=== PATIENT | male | born 1935 | race Caucasian/White ===

== ENCOUNTER 2016-06-10 21:19 | Observation (INO) | payer MEDICARE ==
[2016-06-10] MEDS ORDERED: SODIUM CHLORIDE 0.9% 1,000 ML IV STA (22:08)
--- NOTE | 2016-06-10 22:17 | ED ---
General Adult HPI - General Chief complaint: GI Bleed Stated complaint: Rectal Bleeding Time Seen by Provider: 06/10/16 21:45 Source: patient Mode of arrival: EMS Limitations: no limitations - History of Present Illness Initial comments: Patient is an 80-year-old male with history of colon cancer status post colon resection and colostomy, A. fib on Coumadin, COPD presenting with concern for rectal bleeding. Patient states he noticed some blood in his underwear for which he told family and they were concerned he was having rectal bleeding. Patient had a colon resection and does not have a rectum. Patient has a colostomy for which he has not noticed any blood in the output. Patient states he was bleeding from a little dry skin on his butt. Family is also concerned that he is not acting right for the past month. Family states his energy and mental status will wax and wane every month or so. Patient and family deny any known fall. Patient denies headache, dizziness, chest pain, shortness breath, nausea, vomiting, diarrhea, abdominal pain. - Related Data Home Medications Medication Instructions Recorded Confirmed Diltiazem HCl 60 mg PO TID 05/09/16 06/10/16 Metoprolol Tartrate [Lopressor] 25 mg PO BID 05/09/16 06/10/16 Warfarin [Coumadin] 5 mg PO HS 05/09/16 06/10/16 HYDROcodone/APAP 5-325MG [[place] 1 tab PO BID PRN 05/15/16 06/10/16 5-325] Ipratropium/Albuterol Sulfate 2 puff INHALATION RT-QID 05/15/16 06/10/16 [Combivent Respimat Inhaler] Effer-K 20 Meq 1 tab PO DAILY 06/10/16 06/10/16 Furosemide [Lasix] 40 mg PO DAILY 06/10/16 06/10/16 Sertraline [Zoloft] 50 mg PO DAILY 06/10/16 06/10/16 Previous Rx's Medication Instructions Recorded ALPRAZolam [Xanax] 0.5 mg PO DAILY PRN #10 tablet 05/17/16 Allergies Allergy/AdvReac Type Severity Reaction Status Date / Time aspirin Allergy Dyspnea Verified 06/10/16 21:43 shellfish derived [Shellfish] Allergy Itching Verified 06/10/16 21:43 Review of Systems ROS Statement: Those systems with pertinent positive or pertinent negative responses have been documented in the HPI. Constitutional: No fever and no chills. HENT: No congestion, no rhinorrhea and no sore throat. Eyes: No discharge and no redness. Respiratory: No cough and no shortness of breath. Cardiovascular: No chest pain and no palpitations. Gastrointestinal: No nausea, no vomiting, no abdominal pain and no diarrhea. Genitourinary: No dysuria and no hematuria. Musculoskeletal: No back pain and no arthralgias. Skin: No pallor and no rash. + Abrasion Neurological: No dizziness and No headaches. ROS Other: All systems not noted in ROS Statement are negative. Past Medical History Past Medical History: COPD, Memory Impairment, Myocardial Infarction ([place]) Last Myocardial Infarction Date:: 1989 History of Any Multi-Drug Resistant Organisms: None Reported Past Surgical History: Adenoidectomy, Appendectomy, Bowel Resection, Hernia Repair, Tonsillectomy Additional Past Surgical History / Comment(s): colostomy Past Psychological History: Anxiety, Depression Smoking Status: Never smoker Past Alcohol Use History: None Reported Past Drug Use History: None Reported - Past Family History Mother History Unknown: Yes Family Medical History: COPD General Exam - General Exam Comments Initial Comments: Constitutional: Patient is a frail appearing 80-year-old male. No distress. Head: Normocephalic and atraumatic. Eyes: Conjunctivae and EOM are normal. Right eye exhibits no discharge. Left eye exhibits no discharge. No scleral icterus. Neck: Normal range of motion. Neck supple. Cardiovascular: Normal rate and regular rhythm. No murmur heard. Pulmonary/Chest: Effort normal and breath sounds normal. No respiratory distress. No wheezes. Abdominal: Left lower quadrant colostomy. Soft. No distension. There is no tenderness. There is no rebound and no guarding. : Mild 1 cm abrasion with no active bleeding to anal region. Musculoskeletal: Normal range of motion. No edema or tenderness. Neurological: Patient alert and oriented to person, place. Patient thinks it is 2012 but when told this 2016 he remembers. Skin: Skin is warm and dry. Not diaphoretic. Nursing notes and vitals reviewed. Limitations: no limitations Course Vital Signs 06/10/16 21:38 Temperature 97.9 F Pulse Rate 70 Respiratory 16 Rate Blood Pressure 109/58 O2 Sat by Pulse 97 Oximetry - Reevaluation(s) Reevaluation #1: 06/10/16 23:59 Patient was resting comfortably in bed. Course of stay improved. Denies pain. Discussed physical exam and diagnostic tests with patient. Questions answered and patient is agreeable to staying in the hospital. EKG Findings - EKG Comments: EKG Findings:: EKG done November 08, 2016 at 2253 showing ventricular rate of 66 bpm. Normal sinus rhythm no ST or T-wave changes. OK interval 158 ms, QRS duration 84 ms. QTC 431 ms. Medical Decision Making - Medical Decision Making Patient's an 80-year-old male presenting with concern for rectal bleeding on Coumadin. Patient had a small abrasion to his anal region which has been closed since colon cancer and colectomy. Bleeding was controlled. Family's other concern is about patient's mental status and confusion. They question if he is taken his pills as he should. Patient does live alone. Blood work concerning for hypokalemia potassium 2.7. Hemoglobin is stable at 8.2 with priors being 8.9. Potassium ordered for replacement orally and IV. Given patient's altered mental status and be on Coumadin head CT was obtained when was unremarkable. Chest x-ray unremarkable. UA unremarkable. Discussed H&P and pertinent diagnostic tests with admitting physician who agrees with plan and accepts admission of patient. - Lab Data Result diagrams: 06/10/16 22:43 06/10/16 22:43 Lab Results 06/10/16 06/10/16 06/10/16 Range/Units 22:43 22:43 22:43 WBC 8.2 (3.8-10.6) k/uL RBC 3.01 L (4.30-5.90) m/uL Hgb 8.2 L (13.0-17.5) gm/dL Hct 25.5 L (39.0-53.0) % MCV 84.6 D (80.0-100.0) fL MCH 27.3 (25.0-35.0) pg MCHC 32.2 (31.0-37.0) g/dL RDW 13.9 (11.5-15.5) % Plt Count 196 (150-450) k/uL Neutrophils % 85 % Lymphocytes % 8 % Monocytes % 4 % Eosinophils % 1 % Basophils % 0 % Neutrophils # 6.9 (1.3-7.7) k/uL Lymphocytes # 0.7 L (1.0-4.8) k/uL Monocytes # 0.4 (0-1.0) k/uL Eosinophils # 0.1 (0-0.7) k/uL Basophils # 0.0 (0-0.2) k/uL Hypochromasia Slight PT (9.0-12.0) sec INR (<1.1) APTT (22.0-30.0) sec Sodium 134 L (137-145) mmol/L Potassium 2.7 L* (3.5-5.1) mmol/L Chloride 95 L (98-107) mmol/L Carbon Dioxide 32 H (22-30) mmol/L Anion Gap 7 mmol/L BUN 13 (9-20) mg/dL Creatinine 0.60 L (0.66-1.25) mg/dL Est GFR (MDRD) Af Amer >60 (>60 ml/min/1.73 sqM) Est GFR (MDRD) Non-Af >60 (>60 ml/min/1.73 sqM) Glucose 103 H (74-99) mg/dL Calcium 7.5 L (8.4-10.2) mg/dL Troponin I 0.016 (0.000-0.034) ng/mL Urine Color Urine Appearance (Clear) Urine pH (5.0-8.0) Ur Specific [place] (1.001-1.035) Urine Protein (Negative) Urine Glucose (UA) (Negative) Urine Ketones (Negative) Urine Blood (Negative) Urine Nitrate (Negative) Urine Bilirubin (Negative) Urine Urobilinogen (<2.0) mg/dL Ur Leukocyte Esterase (Negative) 06/10/16 06/10/16 Range/Units 22:43 22:54 WBC (3.8-10.6) k/uL RBC (4.30-5.90) m/uL Hgb (13.0-17.5) gm/dL Hct (39.0-53.0) % MCV (80.0-100.0) fL MCH (25.0-35.0) pg MCHC (31.0-37.0) g/dL RDW (11.5-15.5) % Plt Count (150-450) k/uL Neutrophils % % Lymphocytes % % Monocytes % % Eosinophils % % Basophils % % Neutrophils # (1.3-7.7) k/uL Lymphocytes # (1.0-4.8) k/uL Monocytes # (0-1.0) k/uL Eosinophils # (0-0.7) k/uL Basophils # (0-0.2) k/uL Hypochromasia PT 33.4 H (9.0-12.0) sec INR 3.4 (<1.1) APTT 35.0 H (22.0-30.0) sec Sodium (137-145) mmol/L Potassium (3.5-5.1) mmol/L Chloride (98-107) mmol/L Carbon Dioxide (22-30) mmol/L Anion Gap mmol/L BUN (9-20) mg/dL Creatinine (0.66-1.25) mg/dL Est GFR (MDRD) Af Amer (>60 ml/min/1.73 sqM) Est GFR (MDRD) Non-Af (>60 ml/min/1.73 sqM) Glucose (74-99) mg/dL Calcium (8.4-10.2) mg/dL Troponin I (0.000-0.034) ng/mL Urine Color Yellow Urine Appearance Clear (Clear) Urine pH 6.5 (5.0-8.0) Ur Specific [place] 1.007 (1.001-1.035) Urine Protein Negative (Negative) Urine Glucose (UA) Negative (Negative) Urine Ketones Negative (Negative) Urine Blood Negative (Negative) Urine Nitrate Negative (Negative) Urine Bilirubin Negative (Negative) Urine Urobilinogen <2.0 (<2.0) mg/dL Ur Leukocyte Esterase Negative (Negative) Disposition Clinical Impression: Hypokalemia Disposition: ADMITTED IP TO THIS [facility] Condition: Good Decision to Admit Reason: Admit from EC
--- NOTE | 2016-06-10 22:51 | CT ---
EXAMINATION TYPE: CT brain wo con DATE OF EXAM: 06/10/2016 10:35 PM COMPARISON: NONE HISTORY: Mental status changes. CT DLP: 1081.10 mGycm Automated exposure control for dose reduction was used. FINDINGS: There is no acute intracranial hemorrhage, mass effect, or midline shift identified. The cortical sul ci and ventricles are prominent with age-related atrophic changes of brain. Mild periventricular whit e matter ischemic changes are suggested bilaterally. The globes are intact. Mild mucosal thickening i s noted in the ethmoid sinuses with chronic sinusitis changes. IMPRESSION: No acute intracranial hemorrhage, mass effect, or midline shift is seen. Mild sinusitis changes. Age-related atrophic changes of brain.
[2016-06-10 23:02] LABS: Appearance,Urine Clear (Clear); Bilirubin,Urine Negative (Negative); Glucose,Urine (UA) Negative (Negative); Ketones,Urine Negative (Negative); Leukocyte Esterase,Urine Negative (Negative); Nitrite,Urine Negative (Negative); PH, Urine 6.5 (5.0-8.0); Protein,Urine Negative (Negative); Specific Gravity,Urine 1.007 (1.001-1.035); UA Billing (MACRO vs. MICRO) CHEM; Urobilinogen,Urine <2.0 mg/dL (<2.0)
[2016-06-10 23:04] LABS: Basophils % (A) 0 %; CH 26.8; CHCM 31.7; Eosinophils # (A) 0.1 k/uL (0-0.7); Eosinophils % (A) 1 %; HCT 25.5 % (39.0-53.0); HDW 3.04; HGB 8.2 gm/dL (13.0-17.5); Hypochromasia Slight; Luc # (Auto) 0.17; Luc % (Auto) 2; Lymphocytes # (A) 0.7 k/uL (1.0-4.8); Lymphocytes % (A) 8 %; MCH 27.3 pg (25.0-35.0); MCHC 32.2 g/dL (31.0-37.0); Mean Platelet Volume 8.4; Monocytes # (A) 0.4 k/uL (0-1.0); Monocytes % (A) 4 %; Neutrophils # (A) 6.9 k/uL (1.3-7.7); Neutrophils % (A) 85 %; RBC 3.01 m/uL (4.30-5.90); RDW 13.9 % (11.5-15.5); WBC 8.2 k/uL (3.8-10.6); WBC (Perox) 8.67
[2016-06-10 23:05] LABS: MCV 84.6 fL (80.0-100.0)
[2016-06-10 23:06] LABS: Anion Gap 7 mmol/L; Blood Urea Nitrogen 13 mg/dL (9-20); Calcium 7.5 mg/dL (8.4-10.2); Carbon Dioxide 32 mmol/L (22-30); Chloride 95 mmol/L (98-107); Glucose 103 mg/dL (74-99); INR 3.4 (<1.1); Non-African American GFR(MDRD) >60 (>60 ml/min/1.73 sqM); Sodium 134 mmol/L (137-145)
[2016-06-10 23:07] LABS: Prothrombin Time 33.4 sec (9.0-12.0)
[2016-06-10 23:13] LABS: Potassium 2.7 mmol/L (3.5-5.1)
--- NOTE | 2016-06-10 23:14 | XR ---
EXAMINATION TYPE: XR chest 2V DATE OF EXAM: 06/10/2016 10:25 PM COMPARISON: May 14, 2016 HISTORY: Complaints of rectal bleed history of COPD. TECHNIQUE: Frontal and lateral views of the chest are obtained. FINDINGS: Mild chronic interstitial lung changes and COPD changes are noted in the chest with chronic pulmonary fibrotic changes. No definite focal pneumonia pneumothorax or pleural effusion is noted. There is suggestion of old multiple left rib fractures. Heart is not enlarged. Atherosclerotic calcification is noted in the aortic arch. Moderate spondylotic changes are noted in the thoracic spine. IMPRESSION: 1. COPD changes and pulmonary fibrotic changes. 2. No focal pneumonia. 3. No significant change.
[2016-06-10] MEDS ORDERED: POTASSIUM CHLORIDE ORAL LIQUID 40 MEQ/30 ML CUP PO ONE (23:48)
[2016-06-10] MEDS ORDERED: HYDROcodone/APAP 5-325MG 1 EACH TAB PO PRN (23:58)
[2016-06-10] MEDS ORDERED: ALPRAZolam 0.5 MG TAB PO PRN (23:58)
[2016-06-11] MEDS: POTASSIUM CHLORIDE 10 MEQ, LIDOCAINE 2% INJ 10 MG in SODIUM CHLORIDE 0.9% 100 ML IVPB SCH ×4 (00:14→04:10)
[2016-06-11 08:57] LABS: Basophils % (A) 0 %; CH 26.6; CHCM 30.3; Eosinophils # (A) 0.1 k/uL (0-0.7); Eosinophils % (A) 1 %; HDW 2.93; HGB 8.2 gm/dL (13.0-17.5); Hypochromasia Marked; Luc # (Auto) 0.11; Luc % (Auto) 2; Lymphocytes # (A) 0.6 k/uL (1.0-4.8); Lymphocytes % (A) 8 %; MCH 26.6 pg (25.0-35.0); MCHC 30.3 g/dL (31.0-37.0); MCV 87.9 fL (80.0-100.0); Mean Platelet Volume 8.7; Monocytes # (A) 0.3 k/uL (0-1.0); Monocytes % (A) 5 %; Neutrophils % (A) 85 %; RBC 3.07 m/uL (4.30-5.90); RDW 13.9 % (11.5-15.5); WBC 7.1 k/uL (3.8-10.6); WBC (Perox) 7.32
[2016-06-11 09:07] LABS: ALT 35 U/L (21-72); AST 16 U/L (17-59); Alkaline Phosphatase 59 U/L (38-126); Anion Gap 6 mmol/L; Blood Urea Nitrogen 10 mg/dL (9-20); Calcium 8.1 mg/dL (8.4-10.2); Carbon Dioxide 32 mmol/L (22-30); Chloride 100 mmol/L (98-107); Glucose 96 mg/dL (74-99); Non-African American GFR(MDRD) >60 (>60 ml/min/1.73 sqM); Sodium 138 mmol/L (137-145); Total Bilirubin 0.4 mg/dL (0.2-1.3); Total Protein 5.2 g/dL (6.3-8.2)
[2016-06-11] MEDS: DILTIAZEM ORAL 60 MG TAB PO SCH ×3 (09:36→21:11)
[2016-06-11] MEDS: METOPROLOL TARTRATE 25 MG TAB PO SCH ×2 (09:36→21:09)
[2016-06-11] MEDS: SERTRALINE 50 MG TAB PO SCH (09:36)
[2016-06-11] MEDS: IPRATROPIUM-ALBUTEROL 3 ML NEB INHALATION SCH ×4 (09:41→20:19)
[2016-06-11] MEDS: ZINC OXIDE 20% OINT 28.4 GM TUBE TOPICAL SCH ×2 (12:37→20:44)
--- NOTE | 2016-06-11 12:49 | P.HPIM ---
History of Present Illness H&P Date: 06/11/16 Chief Complaint: Rectal bleeding This is a 80-year-old male, patient of Dr. Dudley. He has a known past medical history of colon cancer with resection and colostomy placement and chemotherapy with radiation in 1989. He also has a history of atrial fibrillation maintained on Coumadin. And a history of COPD and myocardial infarction. Patient presents to the emergency room with concerns of rectal bleeding. He states that he noticed some blood in his underwear and she called EMS and was brought into the emergency room. Patient does report that his underwear had stuck to his skin and he pulled down and noticed some bright red blood and possibly torn off the scab. Patient has colostomy with no blood noted in the stools. Patient had a colon resection and does not have a rectum. There are 2 tiny ulcers noted on his buttocks that were likely bleeding. At this time they're not actively bleeding. There is redness noted along the buttock area as well. He denies any urinary incontinence. Denies any chest pain or shortness of breath. Denies any fevers chills or sweats. Denies any bowel movement changes. Patient lives at home alone. He has not been taking his medications as prescribed. He reports that the box their late out and confuses him. Therefore he just does not take them. Family is aware of this the daughter will be helping in the morning with medications. And they have home care for patient as well. Patient was also found have evidence of hypokalemia with a potassium of 2.7 on admission and this was corrected and is up to 4. INR was 3.4 Coumadin held yesterday. When asked if patient takes both his potassium and Lasix. He states that he may not always take the potassium pill at times. Patient's family was concerned of some mental status changes. Patient did have a computed tomography scan of the brain showing no acute changes. His mentation has improved per family today. She may have had underlying metabolic encephalopathy. Review of Systems Please refer to HPI otherwise unremarkable Past Medical History Past Medical History: Atrial Fibrillation, Atrial Flutter, Cancer, Heart Failure , COPD, Eye Disorder, Memory Impairment, Myocardial Infarction ([place]), Respiratory Disorder, Vascular Disorder Additional Past Medical History / Comment(s): Pt recently admitted to [facility] on with acute exacerbation of COPD, acute hypoxic respiratory failure, bacterial bronchitis. Other PMH: Home O2 prn, 1989 colon cancer with resection/colostomy/chemo and radiation, pulmonary fibrosis, bilateral glaucoma , PVD, bilateral leg varicose veins. Last Myocardial Infarction Date:: 1989 History of Any Multi-Drug Resistant Organisms: None Reported Past Surgical History: Adenoidectomy, Appendectomy, Bowel Resection, Hernia Repair, Tonsillectomy Additional Past Surgical History / Comment(s): 1989 colon resection with colostomy, hiatal hernia repair, colonoscopies. Past Anesthesia/Blood Transfusion Reactions: No Reported Reaction Past Psychological History: Anxiety, Depression Additional Psychological History / Comment(s): Pt states he has anxiety/ depression well managed with his meds. He lives alone. He uses no assistive device. He drives. He has recently been established with home care but does not recall their name. Smoking Status: Former smoker Past Alcohol Use History: None Reported Additional Past Alcohol Use History / Comment(s): Pt started smoking in 1951 and was a light smoker and on/off smoker. He quit smoking in 2012. He has home O2 which he uses prn. Past Drug Use History: None Reported - Past Family History Mother History Unknown: Yes Family Medical History: COPD Additional Family Medical History / Comment(s): Mother never smoked. Father Family Medical History: No Reported History Additional Family Medical History / Comment(s): Father was healthy and at the age of 89yrs. Medications and Allergies Home Medications Medication Instructions Recorded Confirmed Type Diltiazem HCl 60 mg PO TID 05/09/16 06/10/16 History Metoprolol Tartrate [Lopressor] 25 mg PO BID 05/09/16 06/10/16 History Warfarin [Coumadin] 5 mg PO HS 05/09/16 06/10/16 History HYDROcodone/APAP 5-325MG [[place] 1 tab PO BID PRN 05/15/16 06/10/16 History 5-325] Ipratropium/Albuterol Sulfate 2 puff INHALATION RT-QID 05/15/16 06/10/16 History [Combivent Respimat Inhaler] Effer-K 20 Meq 1 tab PO DAILY 06/10/16 06/10/16 History Furosemide [Lasix] 40 mg PO DAILY 06/10/16 06/10/16 History Sertraline [Zoloft] 50 mg PO DAILY 06/10/16 06/10/16 History Allergies Allergy/AdvReac Type Severity Reaction Status Date / Time aspirin Allergy Dyspnea Verified 06/10/16 21:43 shellfish derived [Shellfish] Allergy Itching Verified 06/10/16 21:43 Physical Exam Vitals: Vital Signs Temp Pulse Pulse Resp BP BP Pulse Ox 06/11/16 12:19 66 06/11/16 12:13 66 06/11/16 07:30 97.2 F L 62 19 125/67 100 06/11/16 06:35 97.8 F 76 20 106/72 97 06/11/16 01:32 57 L 18 124/58 96 06/11/16 00:22 69 18 112/56 97 Intake and Output 06/10/16 06/11/16 06/11/16 22:59 06:59 14:59 Other: Voiding Method Urinal Weight 59.6 kg Patient Weight 06/12/16 06:59 Weight 59.6 kg Head normocephalic Neck supple Lungs clear to auscultation bilaterally no wheezing or crackles Heart regular rate and rhythm S1-S2, no rub or gallop Abdomen is soft nontender nondistended positive bowel sounds no hepatosplenomegaly Extremities no edema Neuro alert and orientated to 3 Skin exam: Buttocks area it shows erythema changes. There are 2 small couple millimeter stage II ulcers noted in the skin folds. No active bleeding noted. Results CBC & Chem 7: 06/11/16 08:43 06/11/16 08:43 Labs: Abnormal Lab Results - Last 24 Hours (Table) 06/11/16 06/11/16 Range/Units 08:43 08:43 RBC 3.07 L (4.30-5.90) m/uL Hgb 8.2 L (13.0-17.5) gm/dL Hct 27.0 L (39.0-53.0) % MCHC 30.3 L (31.0-37.0) g/dL Lymphocytes # 0.6 L (1.0-4.8) k/uL Carbon Dioxide 32 H (22-30) mmol/L Creatinine 0.58 L (0.66-1.25) mg/dL Calcium 8.1 L (8.4-10.2) mg/dL AST 16 L (17-59) U/L Total Protein 5.2 L (6.3-8.2) g/dL Albumin 2.7 L (3.5-5.0) g/dL Thrombosis Risk Factor Assmnt - Choose All That Apply Any of the Below Risk Factors Present?: Yes Each Factor Represents 1 point: Abnormal pulmonary function (COPD), Serious lung disease incl. pneumonia (< 1month), Varicose veins Other Risk Factors: Yes Each Risk Factor Represents 2 Points: Malignancy Each Risk Factor Represents 3 Points: Age 75 years or older Other congenital or acquired thrombophilia - If yes, enter type in comment: No Thrombosis Risk Factor Assessment Total Risk Factor Score: 8 Thrombosis Risk Factor Assessment Level: High Risk Assessment and Plan Plan: 1. Hypokalemia: Possibly secondary to taking Lasix without potassium supplement. Patient has received potassium supplement. Potassium has improved from 2.7 to 4. 2. Stage II ulcers with erythema on the buttocks area: Starting zinc oxide twice a day 3. History of colon cancer with bowel resection and colostomy. Also had chemotherapy and radiation treatment in 1989. 4. Paroxysmal atrial fibrillation: Maintained on Coumadin. INR 3.4 on admission. Awaiting PT/INR results for today. 5. Anemia: Hemoglobin 8.2. MCV 87.9. Check iron studies, check B12 and folic acid level. Patient reports no blood noted in the colostomy bag. 6. History of COPD no evidence of exacerbation. Chest x-ray shows COPD with chronic pulmonary fibrotic changes 7. Metabolic encephalopathy: Computed tomography scan of the brain no acute changes. Patient back to baseline GI prophylaxis Pepcid and DVT prophylaxis Coumadin. Time with Patient: Greater than 30 (Greater than 50% of the total time spent in counseling and coordination of care.I performed an examination of the patient and discussed their management with the physician Executive Vice President Business [employer]. I have reviewed the Physician Executive Vice President Business [employer]'s notes and agree with the documented findings and plan of care)
[2016-06-11 14:15] LABS: INR 4.5 (<1.1); Prothrombin Time 44.8 sec (9.0-12.0)
[2016-06-11 15:42] LABS: % Iron Saturation 6.5 % (20-50)
[2016-06-12 07:59] VITALS: BP 100/59; RESP 19; TEMP 98.4
[2016-06-12] MEDS: IPRATROPIUM-ALBUTEROL 3 ML NEB INHALATION SCH ×2 (08:30→11:42)
[2016-06-12 08:32] VITALS: PULSE 100
[2016-06-12 08:36] LABS: Basophils % (A) 0 %; CH 26.3; CHCM 30.4; Eosinophils # (A) 0.1 k/uL (0-0.7); Eosinophils % (A) 1 %; HCT 25.1 % (39.0-53.0); HDW 3.06; HGB 7.9 gm/dL (13.0-17.5); Hypochromasia Marked; INR 3.5 (<1.1); Luc # (Auto) 0.15; Luc % (Auto) 2; Lymphocytes # (A) 0.6 k/uL (1.0-4.8); Lymphocytes % (A) 9 %; MCH 27.1 pg (25.0-35.0); MCHC 31.3 g/dL (31.0-37.0); MCV 86.6 fL (80.0-100.0); Mean Platelet Volume 7.9; Monocytes # (A) 0.3 k/uL (0-1.0); Monocytes % (A) 4 %; Neutrophils # (A) 5.6 k/uL (1.3-7.7); Neutrophils % (A) 84 %; Prothrombin Time 33.7 sec (9.0-12.0); WBC 6.7 k/uL (3.8-10.6); WBC (Perox) 7.17
[2016-06-12 08:58] LABS: ALT 29 U/L (21-72); AST 16 U/L (17-59); Alkaline Phosphatase 56 U/L (38-126); Anion Gap 6 mmol/L; Blood Urea Nitrogen 7 mg/dL (9-20); Calcium 8.2 mg/dL (8.4-10.2); Carbon Dioxide 30 mmol/L (22-30); Chloride 99 mmol/L (98-107); Glucose 94 mg/dL (74-99); Non-African American GFR(MDRD) >60 (>60 ml/min/1.73 sqM); Potassium 3.6 mmol/L (3.5-5.1); Sodium 135 mmol/L (137-145); Total Bilirubin 0.4 mg/dL (0.2-1.3); Total Protein 4.8 g/dL (6.3-8.2)
[2016-06-12] MEDS ORDERED: POTASSIUM CHLORIDE ER 20 MEQ TAB.ER PO SCH (09:00)
[2016-06-12] MEDS ORDERED: FUROSEMIDE 40 MG TAB PO SCH (09:00)
[2016-06-12] MEDS ORDERED: FAMOTIDINE 20 MG TAB PO SCH (09:00)
[2016-06-12] MEDS: DILTIAZEM ORAL 60 MG TAB PO SCH (09:07)
[2016-06-12] MEDS: METOPROLOL TARTRATE 25 MG TAB PO SCH (09:08)
[2016-06-12] MEDS: SERTRALINE 50 MG TAB PO SCH (09:08)
[2016-06-12] MEDS: ZINC OXIDE 20% OINT 28.4 GM TUBE TOPICAL SCH (09:08)
[2016-06-12 12:56] VITALS: BMI 21.2
--- NOTE | 2016-06-12 12:56 | P.DS ---
Providers Date of admission: 06/11/16 00:07 Expected date of discharge: 06/12/16 Attending physician: Nadege Lincoln Primary care physician: Addis Thomas Hospital Course: This is a 80-year-old gentleman with past medical history noted below who was brought to the emergency room with worsening confusion and was found to have evidence of dehydration and hypokalemia. Patient was admitted to the hospital and potassium was replaced. He was having hard time swallowing the large potassium. Which would be switched to the liquid form. Patient was reassured. He would be discharged home in a stable condition. Noise-induced of his medical problems addressed during this hospitalization. 1. Hypokalemia: Possibly secondary to taking Lasix without potassium supplement. Resolved 2. Stage II ulcers with erythema on the buttocks area: Continue zinc oxide twice a day 3. History of colon cancer with bowel resection and colostomy. Also had chemotherapy and radiation treatment in 1989. 4. Paroxysmal atrial fibrillation: Maintained on Coumadin. INR 3.4 on admission. Coumadin dose will be adjusted to 3 mg at bedtime. Recheck INR with primary care physician early next week 5. Anemia of chronic disease and iron deficiency anemia. Continue iron supplement. 6. History of COPD no evidence of exacerbation. Chest x-ray shows COPD with chronic pulmonary fibrotic changes 7. Metabolic encephalopathy: Computed tomography scan of the brain no acute changes. Patient back to baseline Patient Condition at Discharge: Good Plan - Discharge Summary New Discharge Prescriptions: Potassium Chloride Oral Liquid 20 meq PO DAILY #300 ml Warfarin Sodium [Coumadin] 3 mg PO HS #30 tab Zinc Oxide 20% Oint 1 applic TOPICAL BID #60 applic Discharge Medication List Diltiazem HCl 60 mg PO TID 05/09/16 [History] Metoprolol Tartrate [Lopressor] 25 mg PO BID 05/09/16 [History] HYDROcodone/APAP 5-325MG [[place] 5-325] 1 tab PO BID PRN 05/15/16 [History] Ipratropium/Albuterol Sulfate [Combivent Respimat Inhaler] 2 puff INHALATION RT- QID 05/15/16 [History] ALPRAZolam [Xanax] 0.5 mg PO DAILY PRN #10 tablet 05/17/16 [Rx] Furosemide [Lasix] 40 mg PO DAILY 06/10/16 [History] Sertraline [Zoloft] 50 mg PO DAILY 06/10/16 [History] Potassium Chloride Oral Liquid 20 meq PO DAILY #300 ml 06/12/16 [Rx] Warfarin Sodium [Coumadin] 3 mg PO HS #30 tab 06/12/16 [Rx] Zinc Oxide 20% Oint 1 applic TOPICAL BID #60 applic 06/12/16 [Rx] Follow up Appointment(s)/Referral(s): Addis Dudley DO [Primary Care Provider] - 1-2 days Patient Instructions/Handouts: Heart Failure ([place]) Discharge Disposition: HOME SELF-CARE
== END 2016-06-12 13:33 | disposition home or self-care (01) ==
LOC: EC 21:19 → 3OBS 06-11 00:07 → 4MS4W 06-11 06:16
PROVIDERS: ADMIT Internal Medicine; ATTEND Internal Medicine
DX: E87.6 Hypokalemia (principal); L89.302 Pressure ulcer of unspecified buttock, stage 2; I48.0 Paroxysmal atrial fibrillation; D63.8 Anemia in other chronic diseases classified elsewhere; D50.9 Iron deficiency anemia, unspecified; J44.9 Chronic obstructive pulmonary disease, unspecified; G93.41 Metabolic encephalopathy; F32.9 Major depressive disorder, single episode, unspecified; I48.92 Unspecified atrial flutter; I50.9 Heart failure, unspecified; F41.9 Anxiety disorder, unspecified; I25.2 Old myocardial infarction; Z99.81 Dependence on supplemental oxygen; Z90.49 Acquired absence of other specified parts of digestive tract; Z85.038 Personal history of other malignant neoplasm of large intestine; Z87.891 Personal history of nicotine dependence; Z93.3 Colostomy status; Z79.01 Long term (current) use of anticoagulants; Z79.899 Other long term (current) drug therapy; Z88.6 Allergy status to analgesic agent; Z82.5 Family history of asthma and other chronic lower respiratory diseases
CPT/HCPCS: 36415; 94640 ×3; 94760; 93005; 97161; 80053 ×2; 80048; 82607; 82746; 83540; 83550; 84484; 85025 ×3; 85610 ×3; 85730; 81003; 87086; 71020; 70450; 99285; 96365; 96366 ×3; 96361; G0378 ×2; J2001; J3480

== ENCOUNTER 2016-06-15 08:11 | Inpatient (IN) | payer MEDICARE ==
[2016-06-15] MEDS ORDERED: IPRATROPIUM-ALBUTEROL 3 ML NEB INHALATION STA (08:33)
[2016-06-15] MEDS ORDERED: methylPREDNISolone SOD SUCCI 125 MG/2 ML VIAL IV STA (08:33)
--- NOTE | 2016-06-15 08:39 | ED ---
SOB HPI - General Chief Complaint: Shortness of Breath Stated Complaint: Chest pain Time Seen by Provider: 06/15/16 08:20 Source: patient, RN notes reviewed Mode of arrival: ambulatory Limitations: no limitations - History of Present Illness Initial Comments: This is a 80-year-old male with a history of COPD and heart disease who states she's had shortness of breath for about the last 3-4 days. He denies any overt fevers chills or sweats no overt phlegm production. He does use 2 L of oxygen per minute at home. He does have heart disease but currently denies any chest pain. No increased peripheral edema. Per family the brought him any passed out or almost passed out a couple times and route by private vehicle. MD Complaint: shortness of breath, cough - Related Data Home Medications Medication Instructions Recorded Confirmed Diltiazem HCl 60 mg PO TID 05/09/16 06/15/16 Metoprolol Tartrate [Lopressor] 25 mg PO BID 05/09/16 06/15/16 HYDROcodone/APAP 5-325MG [[place] 1 tab PO BID PRN 05/15/16 06/15/16 5-325] Ipratropium/Albuterol Sulfate 2 puff INHALATION RT-QID 05/15/16 06/15/16 [Combivent Respimat Inhaler] Furosemide [Lasix] 40 mg PO DAILY 06/10/16 06/15/16 Sertraline [Zoloft] 50 mg PO DAILY 06/10/16 06/15/16 Previous Rx's Medication Instructions Recorded ALPRAZolam [Xanax] 0.5 mg PO DAILY PRN #10 tablet 05/17/16 Potassium Chloride Oral Liquid 20 meq PO DAILY #300 ml 06/12/16 Warfarin Sodium [Coumadin] 3 mg PO HS #30 tab 06/12/16 Zinc Oxide 20% Oint 1 applic TOPICAL BID #60 applic 06/12/16 Allergies Allergy/AdvReac Type Severity Reaction Status Date / Time aspirin AdvReac Dyspnea Verified 06/15/16 08:29 shellfish derived [Shellfish] AdvReac Itching Verified 06/15/16 08:29 Review of Systems ROS Statement: Those systems with pertinent positive or pertinent negative responses have been documented in the HPI. ROS Other: All systems not noted in ROS Statement are negative. Past Medical History Past Medical History: Atrial Fibrillation, Atrial Flutter, Cancer, Heart Failure , COPD, Eye Disorder, Memory Impairment, Myocardial Infarction ([place]), Respiratory Disorder, Vascular Disorder Additional Past Medical History / Comment(s): Pt recently admitted to [facility] on with acute exacerbation of COPD, acute hypoxic respiratory failure, bacterial bronchitis. Other PMH: Home O2 prn, 1989 colon cancer with resection/colostomy/chemo and radiation, pulmonary fibrosis, bilateral glaucoma , PVD, bilateral leg varicose veins. Last Myocardial Infarction Date:: 1989 History of Any Multi-Drug Resistant Organisms: None Reported Past Surgical History: Adenoidectomy, Appendectomy, Bowel Resection, Hernia Repair, Tonsillectomy Additional Past Surgical History / Comment(s): 1989 colon resection with colostomy, hiatal hernia repair, colonoscopies. Past Anesthesia/Blood Transfusion Reactions: No Reported Reaction Past Psychological History: Anxiety, Depression Additional Psychological History / Comment(s): Pt states he has anxiety/ depression well managed with his meds. He lives alone. He uses no assistive device. He drives. He has recently been established with home care but does not recall their name. Smoking Status: Former smoker Past Alcohol Use History: None Reported Additional Past Alcohol Use History / Comment(s): Pt started smoking in 1952 and was a light smoker and on/off smoker. He quit smoking in 2012. He has home O2 which he uses prn. Past Drug Use History: None Reported - Past Family History Mother History Unknown: Yes Family Medical History: COPD Additional Family Medical History / Comment(s): Mother never smoked. Father Family Medical History: No Reported History Additional Family Medical History / Comment(s): Father was healthy and at the age of 89yrs. General Exam - General Exam Comments Initial Comments: This is a well-developed well-nourished awake alert oriented 3 male he does appear to be dyspneic Limitations: no limitations General appearance: alert Head exam: Present: atraumatic, normocephalic, normal inspection Eye exam: Present: normal appearance, PERRL, EOMI. Absent: scleral icterus, conjunctival injection, periorbital swelling ENT exam: Present: normal exam, mucous membranes moist Neck exam: Present: normal inspection. Absent: tenderness, meningismus, lymphadenopathy Respiratory exam: Present: normal lung sounds bilaterally, decreased breath sounds. Absent: respiratory distress, wheezes, rales, rhonchi, stridor Cardiovascular Exam: Present: regular rate, normal rhythm, normal heart sounds. Absent: systolic murmur, diastolic murmur, rubs, gallop, clicks GI/Abdominal exam: Present: soft, normal bowel sounds. Absent: distended, tenderness, guarding, rebound, rigid Extremities exam: Present: full ROM, normal capillary refill, pedal edema ( Trace edema). Absent: tenderness, joint swelling, calf tenderness Back exam: Present: normal inspection Neurological exam: Present: alert, oriented X3, CN II-XII intact Psychiatric exam: Present: normal affect, normal mood Skin exam: Present: warm, dry, intact, normal color. Absent: rash Course Vital Signs 06/15/16 06/15/16 06/15/16 08:14 08:33 09:03 Temperature 97.4 F L Pulse Rate 74 95 102 H Respiratory 26 H 20 Rate Blood Pressure 99/60 102/57 O2 Sat by Pulse 74 L 100 Oximetry 06/15/16 06/15/16 06/15/16 09:11 09:59 10:14 Temperature 98.5 F Pulse Rate 100 128 H Respiratory 22 Rate Blood Pressure 86/53 98/56 O2 Sat by Pulse 98 Oximetry 06/15/16 06/15/16 06/15/16 10:19 10:33 11:35 Temperature Pulse Rate 118 H 127 H 86 Respiratory 18 Rate Blood Pressure 86/60 133/55 96/54 O2 Sat by Pulse 98 100 Oximetry - Reevaluation(s) Reevaluation #1: 06/15/16 12:03 Agent states he is feeling somewhat better after initial treatment that was rendered. Medical Decision Making - Medical Decision Making I did discuss findings the patient he will be admitted for treatment of COPD exacerbation with CHF. He is lactic acid was mildly elevated believe this is a issue not evidence of infection at this time. - Lab Data Result diagrams: 06/15/16 08:30 06/15/16 08:30 Lab Results 06/15/16 06/15/16 06/15/16 Range/Units 08:30 08:30 08:30 WBC 9.8 (3.8-10.6) k/uL RBC 3.36 L (4.30-5.90) m/uL Hgb 9.0 L (13.0-17.5) gm/dL Hct 28.5 L (39.0-53.0) % MCV 84.8 (80.0-100.0) fL MCH 26.6 (25.0-35.0) pg MCHC 31.4 (31.0-37.0) g/dL RDW 14.0 (11.5-15.5) % Plt Count 326 (150-450) k/uL Neutrophils % 90 % Lymphocytes % 5 % Monocytes % 3 % Eosinophils % 0 % Basophils % 0 % Neutrophils # 8.8 H (1.3-7.7) k/uL Lymphocytes # 0.5 L (1.0-4.8) k/uL Monocytes # 0.3 (0-1.0) k/uL Eosinophils # 0.0 (0-0.7) k/uL Basophils # 0.0 (0-0.2) k/uL Hypochromasia Moderate PT (9.0-12.0) sec INR (<1.1) APTT (22.0-30.0) sec Sodium 134 L (137-145) mmol/L Potassium 4.4 (3.5-5.1) mmol/L Chloride 94 L (98-107) mmol/L Carbon Dioxide 29 (22-30) mmol/L Anion Gap 11 mmol/L BUN 7 L (9-20) mg/dL Creatinine 0.66 (0.66-1.25) mg/dL Est GFR (MDRD) Af Amer >60 (>60 ml/min/1.73 sqM) Est GFR (MDRD) Non-Af >60 (>60 ml/min/1.73 sqM) Glucose 122 H (74-99) mg/dL Plasma Lactic Acid Kristian (0.7-2.0) mmol/L Calcium 8.8 (8.4-10.2) mg/dL Magnesium 1.6 (1.6-2.3) mg/dL Total Bilirubin 0.4 (0.2-1.3) mg/dL AST 23 (17-59) U/L ALT 38 (21-72) U/L Alkaline Phosphatase 69 (38-126) U/L Total Creatine Kinase <20 L (55-170) U/L CK-MB (CK-2) 0.4 (0.0-2.4) ng/mL CK-MB (CK-2) Rel Index 0.0 Troponin I <0.012 (0.000-0.034) ng/mL NT-Pro-B Natriuret Pep pg/mL Total Protein 5.8 L (6.3-8.2) g/dL Albumin 3.0 L (3.5-5.0) g/dL 06/15/16 06/15/16 06/15/16 Range/Units 08:30 08:30 08:30 WBC (3.8-10.6) k/uL RBC (4.30-5.90) m/uL Hgb (13.0-17.5) gm/dL Hct (39.0-53.0) % MCV (80.0-100.0) fL MCH (25.0-35.0) pg MCHC (31.0-37.0) g/dL RDW (11.5-15.5) % Plt Count (150-450) k/uL Neutrophils % % Lymphocytes % % Monocytes % % Eosinophils % % Basophils % % Neutrophils # (1.3-7.7) k/uL Lymphocytes # (1.0-4.8) k/uL Monocytes # (0-1.0) k/uL Eosinophils # (0-0.7) k/uL Basophils # (0-0.2) k/uL Hypochromasia PT 87.6 H (9.0-12.0) sec INR 8.4 H* (<1.1) APTT 42.7 H (22.0-30.0) sec Sodium (137-145) mmol/L Potassium (3.5-5.1) mmol/L Chloride (98-107) mmol/L Carbon Dioxide (22-30) mmol/L Anion Gap mmol/L BUN (9-20) mg/dL Creatinine (0.66-1.25) mg/dL Est GFR (MDRD) Af Amer (>60 ml/min/1.73 sqM) Est GFR (MDRD) Non-Af (>60 ml/min/1.73 sqM) Glucose (74-99) mg/dL Plasma Lactic Acid Kristian 2.4 H* (0.7-2.0) mmol/L Calcium (8.4-10.2) mg/dL Magnesium (1.6-2.3) mg/dL Total Bilirubin (0.2-1.3) mg/dL AST (17-59) U/L ALT (21-72) U/L Alkaline Phosphatase (38-126) U/L Total Creatine Kinase (55-170) U/L CK-MB (CK-2) (0.0-2.4) ng/mL CK-MB (CK-2) Rel Index Troponin I (0.000-0.034) ng/mL NT-Pro-B Natriuret Pep 3240 pg/mL Total Protein (6.3-8.2) g/dL Albumin (3.5-5.0) g/dL - EKG Data -: EKG Interpreted by Me (Atrial fibrillation rate 104 QRS duration 76, QT/ QTC of 304/399 non specif) - Radiology Data Radiology results: report reviewed (I did review the x-ray and report no acute findings are noted there does appear to be some blunting of the costophrenic angles.), image reviewed Critical Care Time Critical Care Time: Yes Critical Care Time: 33 minutes of critical care time which includes initial presentation with history physical lab and x-ray evaluation reevaluation the patient to responsive therapy. Evaluation old charts. Discussion with the patient regarding findings discussed with the admitting physician and admission orders and documentation of the above. Disposition Clinical Impression: Congestive heart failure, Acute exacerbation of chronic obstructive airways disease, Adult respiratory distress syndrome, Anemia, Lactic acidosis Disposition: ADMITTED IP TO THIS [facility] Condition: Stable
[2016-06-15 09:05] LABS: Basophils % (A) 0 %; CH 26.3; Eosinophils % (A) 0 %; HCT 28.5 % (39.0-53.0); Hypochromasia Moderate; Luc # (Auto) 0.14; Luc % (Auto) 2; Lymphocytes # (A) 0.5 k/uL (1.0-4.8); Lymphocytes % (A) 5 %; MCH 26.6 pg (25.0-35.0); MCHC 31.4 g/dL (31.0-37.0); MCV 84.8 fL (80.0-100.0); Mean Platelet Volume 8.1; Monocytes # (A) 0.3 k/uL (0-1.0); Monocytes % (A) 3 %; Neutrophils # (A) 8.8 k/uL (1.3-7.7); Neutrophils % (A) 90 %; RBC 3.36 m/uL (4.30-5.90); WBC 9.8 k/uL (3.8-10.6); WBC (Perox) 10.61
--- NOTE | 2016-06-15 09:07 | XR ---
EXAMINATION TYPE: XR chest 2V DATE OF EXAM: 06/15/2016 8:56 AM COMPARISON: Prior chest x-ray 10 June 2016 HISTORY: Difficulty breathing TECHNIQUE: Frontal and lateral views of the chest are obtained. FINDINGS: There is no focal air space opacity, pleural effusion, or pneumothorax seen. The cardiac silhouette size is stable and enlarged. Prominent lung volumes are stable compatible with underlying COPD. There are overlying cardiac leads. Arthropathy noted at the acromion clavicular joints. The os seous structures are intact. IMPRESSION: No acute cardiopulmonary process.
[2016-06-15 09:11] LABS: ALT 38 U/L (21-72); AST 23 U/L (17-59); Alkaline Phosphatase 69 U/L (38-126); Anion Gap 11 mmol/L; Blood Urea Nitrogen 7 mg/dL (9-20); Calcium 8.8 mg/dL (8.4-10.2); Carbon Dioxide 29 mmol/L (22-30); Chloride 94 mmol/L (98-107); Glucose 122 mg/dL (74-99); Magnesium 1.6 mg/dL (1.6-2.3); Non-African American GFR(MDRD) >60 (>60 ml/min/1.73 sqM); Potassium 4.4 mmol/L (3.5-5.1); Sodium 134 mmol/L (137-145); Total Bilirubin 0.4 mg/dL (0.2-1.3); Total Protein 5.8 g/dL (6.3-8.2)
[2016-06-15 09:14] LABS: Partial Thromboplastin Time 42.7 sec (22.0-30.0); Prothrombin Time 87.6 sec (9.0-12.0)
[2016-06-15 09:21] LABS: INR 8.4 (<1.1)
[2016-06-15 09:28] LABS: Creatine Kinase <20 U/L (55-170)
[2016-06-15 09:42] LABS: Creatine Kinase MB 0.4 ng/mL (0.0-2.4); Troponin I <0.012 ng/mL (0.000-0.034)
[2016-06-15] MEDS ORDERED: FUROSEMIDE 10 MG/ML 4 ML VIAL IV STA (11:53)
--- NOTE | 2016-06-15 12:11 | ED ---
Medical Decision Making - Lab Data Result diagrams: 06/15/16 08:30 06/15/16 08:30 Lab Results 06/15/16 06/15/16 06/15/16 Range/Units 08:30 08:30 08:30 WBC 9.8 (3.8-10.6) k/uL RBC 3.36 L (4.30-5.90) m/uL Hgb 9.0 L (13.0-17.5) gm/dL Hct 28.5 L (39.0-53.0) % MCV 84.8 (80.0-100.0) fL MCH 26.6 (25.0-35.0) pg MCHC 31.4 (31.0-37.0) g/dL RDW 14.0 (11.5-15.5) % Plt Count 326 (150-450) k/uL Neutrophils % 90 % Lymphocytes % 5 % Monocytes % 3 % Eosinophils % 0 % Basophils % 0 % Neutrophils # 8.8 H (1.3-7.7) k/uL Lymphocytes # 0.5 L (1.0-4.8) k/uL Monocytes # 0.3 (0-1.0) k/uL Eosinophils # 0.0 (0-0.7) k/uL Basophils # 0.0 (0-0.2) k/uL Hypochromasia Moderate PT (9.0-12.0) sec INR (<1.1) APTT (22.0-30.0) sec Sodium 134 L (137-145) mmol/L Potassium 4.4 (3.5-5.1) mmol/L Chloride 94 L (98-107) mmol/L Carbon Dioxide 29 (22-30) mmol/L Anion Gap 11 mmol/L BUN 7 L (9-20) mg/dL Creatinine 0.66 (0.66-1.25) mg/dL Est GFR (MDRD) Af Amer >60 (>60 ml/min/1.73 sqM) Est GFR (MDRD) Non-Af >60 (>60 ml/min/1.73 sqM) Glucose 122 H (74-99) mg/dL Plasma Lactic Acid Kristian (0.7-2.0) mmol/L Calcium 8.8 (8.4-10.2) mg/dL Magnesium 1.6 (1.6-2.3) mg/dL Total Bilirubin 0.4 (0.2-1.3) mg/dL AST 23 (17-59) U/L ALT 38 (21-72) U/L Alkaline Phosphatase 69 (38-126) U/L Total Creatine Kinase <20 L (55-170) U/L CK-MB (CK-2) 0.4 (0.0-2.4) ng/mL CK-MB (CK-2) Rel Index 0.0 Troponin I <0.012 (0.000-0.034) ng/mL NT-Pro-B Natriuret Pep pg/mL Total Protein 5.8 L (6.3-8.2) g/dL Albumin 3.0 L (3.5-5.0) g/dL 06/15/16 06/15/16 06/15/16 Range/Units 08:30 08:30 08:30 WBC (3.8-10.6) k/uL RBC (4.30-5.90) m/uL Hgb (13.0-17.5) gm/dL Hct (39.0-53.0) % MCV (80.0-100.0) fL MCH (25.0-35.0) pg MCHC (31.0-37.0) g/dL RDW (11.5-15.5) % Plt Count (150-450) k/uL Neutrophils % % Lymphocytes % % Monocytes % % Eosinophils % % Basophils % % Neutrophils # (1.3-7.7) k/uL Lymphocytes # (1.0-4.8) k/uL Monocytes # (0-1.0) k/uL Eosinophils # (0-0.7) k/uL Basophils # (0-0.2) k/uL Hypochromasia PT 87.6 H (9.0-12.0) sec INR 8.4 H* (<1.1) APTT 42.7 H (22.0-30.0) sec Sodium (137-145) mmol/L Potassium (3.5-5.1) mmol/L Chloride (98-107) mmol/L Carbon Dioxide (22-30) mmol/L Anion Gap mmol/L BUN (9-20) mg/dL Creatinine (0.66-1.25) mg/dL Est GFR (MDRD) Af Amer (>60 ml/min/1.73 sqM) Est GFR (MDRD) Non-Af (>60 ml/min/1.73 sqM) Glucose (74-99) mg/dL Plasma Lactic Acid Kristian 2.4 H* (0.7-2.0) mmol/L Calcium (8.4-10.2) mg/dL Magnesium (1.6-2.3) mg/dL Total Bilirubin (0.2-1.3) mg/dL AST (17-59) U/L ALT (21-72) U/L Alkaline Phosphatase (38-126) U/L Total Creatine Kinase (55-170) U/L CK-MB (CK-2) (0.0-2.4) ng/mL CK-MB (CK-2) Rel Index Troponin I (0.000-0.034) ng/mL NT-Pro-B Natriuret Pep 3240 pg/mL Total Protein (6.3-8.2) g/dL Albumin (3.5-5.0) g/dL Disposition Clinical Impression: Congestive heart failure, Acute exacerbation of chronic obstructive airways disease, Adult respiratory distress syndrome, Anemia, Lactic acidosis, Coumadin toxicity Disposition: ADMITTED IP TO THIS HOSP Condition: Stable Referrals: Addis Dudley DO [Primary Care Provider] - 1-2 days
[2016-06-15] MEDS ORDERED: SODIUM CHLORIDE 0.9% 1,000 ML IV SCH (12:15)
[2016-06-15] MEDS: IPRATROPIUM-ALBUTEROL 3 ML NEB INHALATION SCH ×2 (15:20→19:17)
[2016-06-15] MEDS: methylPREDNISolone SOD SUCCI 125 MG/2 ML VIAL IV SCH (17:38)
[2016-06-15] MEDS: DILTIAZEM ORAL 60 MG TAB PO SCH ×2 (17:38→20:58)
[2016-06-15] MEDS: FUROSEMIDE 10 MG/ML 4 ML VIAL IV SCH (20:57)
[2016-06-15] MEDS: ZINC OXIDE 20% OINT 28.4 GM TUBE TOPICAL SCH (20:57)
[2016-06-15] MEDS: METOPROLOL TARTRATE 25 MG TAB PO SCH (20:58)
[2016-06-15] MEDS ORDERED: IV VANCOMYCIN PER PHARMACY 1 EACH MISC MISCELLANE PRN (23:35)
[2016-06-16] MEDS: VANCOMYCIN 1,250 MG in SODIUM CHLORIDE 0.9% 250 ML IVPB SCH ×2 (00:22→14:00)
[2016-06-16] MEDS: methylPREDNISolone SOD SUCCI 125 MG/2 ML VIAL IV SCH ×2 (00:23→06:09)
[2016-06-16] MEDS: ALPRAZolam 0.5 MG TAB PO PRN ×2 (01:12→23:09)
[2016-06-16 05:57] LABS: Glucose,Whole Blood 157 mg/dL (75-99)
[2016-06-16 06:41] LABS: INR 4.4 (<1.1); Prothrombin Time 43.3 sec (9.0-12.0)
[2016-06-16] MEDS: METOPROLOL TARTRATE 25 MG TAB PO SCH (08:05)
[2016-06-16] MEDS: ZINC OXIDE 20% OINT 28.4 GM TUBE TOPICAL SCH ×3 (08:05→20:32)
[2016-06-16] MEDS: SERTRALINE 50 MG TAB PO SCH (08:06)
[2016-06-16] MEDS: FUROSEMIDE 10 MG/ML 4 ML VIAL IV SCH (08:06)
[2016-06-16] MEDS: DILTIAZEM ORAL 60 MG TAB PO SCH (08:06)
[2016-06-16] MEDS: IPRATROPIUM-ALBUTEROL 3 ML NEB INHALATION SCH ×4 (08:31→20:21)
[2016-06-16] MEDS ORDERED: POTASSIUM CHLORIDE ORAL LIQUID 40 MEQ/30 ML CUP PO SCH (09:00)
[2016-06-16] MEDS ORDERED: FUROSEMIDE 40 MG TAB PO SCH (09:00)
--- NOTE | 2016-06-16 11:48 | P.HPIM ---
History of Present Illness H&P Date: 06/16/16 Chief Complaint: Dizziness and weakness This is a 80-year-old gentleman with past medical history noted below who was recently discharged from the hospital 2 days ago and went home with his family but subsequently returned back to the emergency room last night. Patient himself is a very poor historian and most of the history was obtained by his daughter at the bedside. Since patient got out of the hospital he was noted to be significantly weak. He was unable to walk around. His daughter said that his blood pressure was low and he was getting dizzy every time he gets up. He was unsteady on his feet. There was no loss of consciousness or falls. Patient himself reports being short of breath. He denies any cough, fever, or chest pain. He presented in the emergency room and was evaluated and blood work showed evidence of dehydration with supratherapeutic INR. Patient was admitted to telemetry floor for further evaluation. He sitting at the edge of the bed today. He feels well sitting down. Blood pressure was noted to be low this morning. Review of Systems Review of system: 14 points review of systems were obtained and were negative except to what were mentioned in the HPI. Past Medical History Past Medical History: Atrial Fibrillation, Atrial Flutter, Coronary Artery Disease (CAD), Cancer, Heart Failure, COPD, Eye Disorder, Memory Impairment, Myocardial Infarction ([place]), Respiratory Disorder, Vascular Disorder Additional Past Medical History / Comment(s): Pt recently admitted to [facility] on with hypokalemia, stage II ulcer to buttock (pt states still treating), metabolic encephalopathy which resolved. Other HX: acute hypoxic respiratory failure, bacterial bronchitis, home O2 prn ATC, pulmonary fibrosis, 1989 colon cancer with resection/colostomy/chemo and radiation, 1989 [place] with cardiac arrest, bilateral glaucoma, PVD, bilateral leg varicose veins. Last Myocardial Infarction Date:: 1989 History of Any Multi-Drug Resistant Organisms: None Reported Past Surgical History: Adenoidectomy, Appendectomy, Bowel Resection, Hernia Repair, Tonsillectomy Additional Past Surgical History / Comment(s): 1989 colon resection with colostomy, hiatal hernia repair, colonoscopies. Past Anesthesia/Blood Transfusion Reactions: No Reported Reaction Past Psychological History: Anxiety, Depression Additional Psychological History / Comment(s): Pt states he has anxiety/ depression somewhat managed with his meds. He still feels quite anxious. He lives alone. He uses no assistive device. He drives. He has recently been established with home care but does not recall their name. Smoking Status: Former smoker Past Alcohol Use History: None Reported Additional Past Alcohol Use History / Comment(s): Pt started smoking in 1952 and was a light smoker and on/off smoker. He quit smoking in 2012. He has home O2 which he uses ATC now. Past Drug Use History: None Reported - Past Family History Mother History Unknown: Yes Family Medical History: COPD Additional Family Medical History / Comment(s): Mother never smoked. Father Family Medical History: No Reported History Additional Family Medical History / Comment(s): Father was healthy and at the age of 89yrs. Medications and Allergies Home Medications Medication Instructions Recorded Confirmed Type Diltiazem HCl 60 mg PO TID 05/09/16 06/15/16 History Metoprolol Tartrate [Lopressor] 25 mg PO BID 05/09/16 06/15/16 History HYDROcodone/APAP 5-325MG [[place] 1 tab PO BID PRN 05/15/16 06/15/16 History 5-325] Ipratropium/Albuterol Sulfate 2 puff INHALATION RT-QID 05/15/16 06/15/16 History [Combivent Respimat Inhaler] Furosemide [Lasix] 40 mg PO DAILY 06/10/16 06/15/16 History Sertraline [Zoloft] 50 mg PO DAILY 06/10/16 06/15/16 History Allergies Allergy/AdvReac Type Severity Reaction Status Date / Time aspirin AdvReac Dyspnea Verified 06/15/16 08:29 shellfish derived [Shellfish] AdvReac Itching Verified 06/15/16 08:29 Physical Exam Vitals: Vital Signs Temp Pulse Pulse Resp BP BP Pulse Ox 06/16/16 08:00 96.9 F L 119 H 20 100/51 97 06/16/16 06:03 120/47 06/16/16 03:01 77 16 06/16/16 02:59 96.9 F L 77 16 83/37 06/16/16 00:00 96.9 F L 82 18 93/50 99 06/15/16 20:00 96.8 F L 105 H 16 100/54 98 06/15/16 19:32 100 06/15/16 19:17 100 06/15/16 16:00 96.8 F L 110 H 16 89/55 97 06/15/16 15:33 97.4 F L 110 H 18 97/56 98 06/15/16 14:18 120 H 20 100/56 100 06/15/16 12:36 114 H 18 122/76 96 Intake and Output 06/15/16 06/16/16 06/16/16 22:59 06:59 14:59 Intake Total 360 180 Output Total 150 850 700 Balance 210 -850 -520 Intake: Oral 360 180 Output: Urine 150 850 700 Other: Voiding Method Urinal Urinal # Voids 0 1 # Bowel Movements 0 Weight 59 kg General: The patient is awake and alert, in no distress, and does not appear acutely ill. Eye: extra-ocular movements are intact; there is normal conjunctiva bilaterally. . Neck: The neck is supple, there is no tenderness or JVD. Cardiovascular: Normal S1-S2, no S3-S4, no murmurs. Respiratory: Lungs are diminished bilaterally with no obvious wheezing Gastrointestinal: Abdomen is soft, nontender, nondistended, with no organomegaly. . Musculoskeletal: Normal ROM, no tenderness, There is no pedal edema. Neurological: There are no obvious motor or sensory deficits. Speech is normal. Skin: Skin is warm and dry and no rashes or lesions are noted. Results CBC & Chem 7: 06/15/16 08:30 06/16/16 01:00 Labs: Abnormal Lab Results - Last 24 Hours (Table) 06/16/16 06/16/16 Range/Units 05:31 05:54 PT 43.3 H (9.0-12.0) sec POC Glucose (mg/dL) 157 H (75-99) mg/dL Thrombosis Risk Factor Assmnt - Choose All That Apply Any of the Below Risk Factors Present?: Yes Each Factor Represents 1 point: Abnormal pulmonary function (COPD), Heart failure (<1month), Serious lung disease incl. pneumonia (< 1month) Other Risk Factors: Yes Each Risk Factor Represents 3 Points: Age 75 years or older Other congenital or acquired thrombophilia - If yes, enter type in comment: No Thrombosis Risk Factor Assessment Total Risk Factor Score: 6 Thrombosis Risk Factor Assessment Level: High Risk Assessment and Plan Plan: 1. Dizziness and lightheadedness: Most likely secondary to dehydration, Lasix use, and poor by mouth intake. I would check orthostatic blood pressure. Start gentle IV fluid hydration and recheck orthostatics in the morning. Continue telemetry monitoring. Consult PT/OT for further evaluation. 2. Stage II ulcers with erythema on the buttocks area: Continue zinc oxide twice a day 3. History of colon cancer with bowel resection and colostomy. Also had chemotherapy and radiation treatment in 1989. 4. Paroxysmal atrial fibrillation: Maintained on Coumadin at home currently on hold secondary to supratherapeutic INR. We'll continue to monitor daily. 5. Anemia of chronic disease and iron deficiency anemia. Continue iron supplement. 6. History of COPD no evidence of exacerbation. Chest x-ray shows COPD with chronic pulmonary fibrotic changes Today, I reviewed his medication list. Given borderline low blood pressure I will do the following adjustment: Decrease metoprolol to 12.5 mg twice daily. Decrease Cardizem dose to 30 mg 3 times a day. Today, I met with his daughter at bedside. We discussed plan of care. She informed me that they are unable to take care of him at home at this point. They would like him to go to an [facility] for rehabilitation when cleared medically for discharge.
[2016-06-16 11:49] LABS: Glucose,Whole Blood 124 mg/dL (75-99)
[2016-06-16 12:58] LABS: Appearance,Urine Clear (Clear); Bilirubin,Urine Negative (Negative); Glucose,Urine (UA) Negative (Negative); Ketones,Urine Negative (Negative); Leukocyte Esterase,Urine Negative (Negative); Nitrite,Urine Negative (Negative); PH, Urine 6.5 (5.0-8.0); Protein,Urine Negative (Negative); Specific Gravity,Urine 1.007 (1.001-1.035); UA Billing (MACRO vs. MICRO) CHEM; Urobilinogen,Urine <2.0 mg/dL (<2.0)
[2016-06-16 16:57] LABS: Glucose,Whole Blood 135 mg/dL (75-99)
[2016-06-16] MEDS: DILTIAZEM ORAL 30 MG TAB PO SCH ×2 (16:57→20:32)
[2016-06-16] MEDS: SODIUM CHLORIDE 0.9% 1,000 ML IV SCH (18:02)
[2016-06-16] MEDS: METOPROLOL TARTRATE 12.5 MG TAB PO SCH (20:31)
[2016-06-16 20:53] LABS: Glucose,Whole Blood 144 mg/dL (75-99)
[2016-06-16] MEDS: IPRATROPIUM-ALBUTEROL 3 ML NEB INHALATION PRN (23:01)
[2016-06-17] MEDS: VANCOMYCIN 1,250 MG in SODIUM CHLORIDE 0.9% 250 ML IVPB SCH ×2 (01:52→13:51)
[2016-06-17] MEDS: SODIUM CHLORIDE 0.9% 1,000 ML IV SCH ×5 (01:53→21:43)
[2016-06-17 06:50] LABS: Basophils % (A) 0 %; CH 25.9; CHCM 30.3; Eosinophils % (A) 0 %; HDW 3.07; HGB 7.7 gm/dL (13.0-17.5); Hypochromasia Marked; Luc # (Auto) 0.16; Luc % (Auto) 1; Lymphocytes # (A) 0.8 k/uL (1.0-4.8); Lymphocytes % (A) 6 %; MCH 26.4 pg (25.0-35.0); MCV 85.3 fL (80.0-100.0); Mean Platelet Volume 7.7; Monocytes # (A) 0.5 k/uL (0-1.0); Monocytes % (A) 3 %; Neutrophils # (A) 13.8 k/uL (1.3-7.7); Neutrophils % (A) 90 %; RBC 2.93 m/uL (4.30-5.90); RDW 14.1 % (11.5-15.5); WBC 15.3 k/uL (3.8-10.6); WBC (Perox) 16.72
[2016-06-17 06:54] LABS: INR 3.2 (<1.1); Prothrombin Time 31.4 sec (9.0-12.0)
[2016-06-17 07:32] LABS: Anion Gap 10 mmol/L; Blood Urea Nitrogen 21 mg/dL (9-20); Calcium 8.8 mg/dL (8.4-10.2); Carbon Dioxide 32 mmol/L (22-30); Chloride 98 mmol/L (98-107); Glucose 95 mg/dL (74-99); Non-African American GFR(MDRD) >60 (>60 ml/min/1.73 sqM); Potassium 3.6 mmol/L (3.5-5.1); Sodium 140 mmol/L (137-145)
[2016-06-17] MEDS: IPRATROPIUM-ALBUTEROL 3 ML NEB INHALATION SCH ×4 (08:21→19:59)
[2016-06-17] MEDS: METOPROLOL TARTRATE 12.5 MG TAB PO SCH (08:51)
[2016-06-17] MEDS: DILTIAZEM ORAL 30 MG TAB PO SCH (08:51)
[2016-06-17] MEDS: ZINC OXIDE 20% OINT 28.4 GM TUBE TOPICAL SCH ×2 (08:52→21:25)
[2016-06-17] MEDS: SERTRALINE 50 MG TAB PO SCH (08:52)
[2016-06-17 11:55] LABS: Glucose,Whole Blood 107 mg/dL (75-99)
[2016-06-17] MEDS ORDERED: ONDANSETRON 4 MG/2 ML VIAL IVP PRN (12:02)
[2016-06-17] MEDS ORDERED: VANCOMYCIN TROUGH DUE 1 EACH MISC MISCELLANE ONE (12:30)
[2016-06-17 12:49] LABS: Total Bilirubin 0.2 mg/dL (0.2-1.3)
[2016-06-17] MEDS ORDERED: RX INFO: IV CONTRAST WAS GIVEN 1 EACH MISC MISCELLANE PRN (13:17)
--- NOTE | 2016-06-17 13:23 | P.PN ---
Subjective Patient presented with significant weakness and dizziness. Patient had evidence of dehydration. And hypotension. Patient complaining of abdominal pain mostly in the right upper quadrant that started last night. Doesn't to some nausea no vomiting. Has had decrease in appetite. He did have one positive blood culture for L for hemolytic Streptococcus. Was started on IV vancomycin yesterday white count has gone up to 15.3 from 9.8. Patient has colostomy reporting no blood in the stool. And he has been having output as usual. Objective - Vital Signs Vital signs: Vital Signs Temp 97 F L 06/17/16 08:00 Pulse 102 H 06/17/16 08:30 Resp 20 06/17/16 08:00 BP 113/52 06/17/16 08:00 Pulse Ox 100 06/17/16 08:00 Intake & Output 06/16/16 06/17/16 06/17/16 18:59 06:59 18:59 Intake Total 1310 240 240 Output Total 850 1700 600 Balance 460 -1460 -360 Weight 59 kg 59.3 kg Intake: IV 240 Sodium Chloride 0.9% 1, 240 000 ml @ 20 mls/hr IV . Q24H [facility] Rx#:[id number] Intake, IV Titration 930 Amount Sodium Chloride 0.9% 1, 680 000 ml @ 75 mls/hr IV . [id number] [facility] Rx#:[id number] Vancomycin 1,250 mg In 250 Sodium Chloride 0.9% 250 ml @ 125 mls/hr IVPB Q12H [facility] Rx#:[id number] Oral 380 240 Output: Urine 850 1700 600 Other: Voiding Method Urinal Urinal # Voids 2 1 - Exam Head normocephalic Neck supple Lungs clear to auscultation bilaterally no wheezing or crackles Heart regular rate and rhythm S1-S2, no rub or gallop Abdomen is soft nondistended right upper quadrant tenderness positive bowel sounds Extremities no edema Neuro alert and orientated to 3 - Labs CBC & Chem 7: 06/17/16 06:21 06/17/16 06:21 Labs: Abnormal Lab Results - Last 24 Hours (Table) 06/16/16 06/16/16 06/17/16 Range/Units 16:56 20:41 06:21 WBC 15.3 H (3.8-10.6) k/uL RBC 2.93 L (4.30-5.90) m/uL Hgb 7.7 L (13.0-17.5) gm/dL Hct 25.0 L (39.0-53.0) % Plt Count 458 H (150-450) k/uL Neutrophils # 13.8 H (1.3-7.7) k/uL Lymphocytes # 0.8 L (1.0-4.8) k/uL PT (9.0-12.0) sec Carbon Dioxide (22-30) mmol/L BUN (9-20) mg/dL POC Glucose (mg/dL) 135 H 144 H (75-99) mg/dL 06/17/16 06/17/16 06/17/16 Range/Units 06:21 06:21 11:51 WBC (3.8-10.6) k/uL RBC (4.30-5.90) m/uL Hgb (13.0-17.5) gm/dL Hct (39.0-53.0) % Plt Count (150-450) k/uL Neutrophils # (1.3-7.7) k/uL Lymphocytes # (1.0-4.8) k/uL PT 31.4 H (9.0-12.0) sec Carbon Dioxide 32 H (22-30) mmol/L BUN 21 H (9-20) mg/dL POC Glucose (mg/dL) 107 H (75-99) mg/dL Microbiology - Last 24 Hours (Table) 06/16/16 05:31 Blood Culture Gram Stain - Preliminary Blood 06/16/16 05:31 Blood Culture - Preliminary Blood Assessment and Plan Plan: 1. Dizziness and lightheadedness: Most likely secondary to dehydration, Lasix use, and poor by mouth intake. I would check orthostatic blood pressure. Start gentle IV fluid hydration and recheck orthostatics in the morning. Continue telemetry monitoring. Consult PT/OT for further evaluation. 2. Stage II ulcers with erythema on the buttocks area: Continue zinc oxide twice a day 3. History of colon cancer with bowel resection and colostomy. Also had chemotherapy and radiation treatment in 1989. 4. Paroxysmal atrial fibrillation: Maintained on Coumadin at home currently on hold secondary to supratherapeutic INR. We'll continue to monitor daily. Patient episode of atrial fibrillation with rapid ventricular response with heart rate in the 160s with ambulating. He was given his Cardizem and metoprolol. And there has been improvement in the heart rate . Patient's blood pressures have shown improvement since yesterday we will resume his metoprolol 25 mg twice a day and Cardizem 60 mg 3 times a day 5. Anemia of chronic disease and iron deficiency anemia. Continue iron supplement. 6. History of COPD no evidence of exacerbation. Chest x-ray shows COPD with chronic pulmonary fibrotic changes 7. Essential hypertension with hypotension on admission. Metoprolol was decreased to 12.5 mg twice daily and Cardizem decreased to 30 mg 3 times a day yesterday. Blood pressures have shown improvement 8. Bacteremia: 1 blood culture showing alpha hemolytic streptococcus and repeat blood culture growing gram-positive cocci. Patient currently on IV vancomycin 9. Leukocytosis with right upper quadrant abdominal pain. LFTs, amylase and lipase all within normal limits. Check computed tomography scan of the abdomen and pelvis with contrast. Consult surgical service and infectious disease. Check lactic acid level. Increase IV fluids to 100 cc over an hour. Monitor closely I performed an examination of the patient and discussed their management with the physician Distribution Technician. I have reviewed the Physician Distribution Technician's notes and agree with the documented findings and plan of care
[2016-06-17] MEDS: IOHEXOL 350 MG/ML 25 ML BOTTLE (ORAL USE) PO PRN ×2 (13:51→14:39)
[2016-06-17] MEDS ORDERED: SODIUM CHLORIDE 0.9% 250 ML IV ONE (14:24)
[2016-06-17 15:29] VITALS: BMI 21.1
--- NOTE | 2016-06-17 15:35 | P.GSHP ---
History of Present Illness H&P Date: 06/17/16 Chief Complaint: Abdominal pain Patient is an 80-year-old white male referred from Dr. Lincoln for abdominal pain. Patient has a medical history of colon cancer with bowel resection and colostomy. Patient states that he has had on and off right upper quadrant abdominal pain for years exacerbated after eating certain foods such as salad dressings. Patient states that he was hospitalized at [facility] approximately one year ago where he was told that he needed surgery on his gallbladder. Patient is unsure if he was diagnosed with gallbladder stones. Patient states that he sometimes experiences nausea and vomiting, and complains of frequent episodes of chills. Denies fevers. Patient denies melena or hematemesis. WBC increased to 15.3 from 9.8 yesterday. Hemoglobin decreased to 7.7 from 9 yesterday. INR 3.2. Plasma lactic acid venous 2.4 from 1.8 yesterday. Amylase and lipase within normal limits. Past Medical History Past Medical History: Atrial Fibrillation, Atrial Flutter, Coronary Artery Disease (CAD), Cancer, Heart Failure, COPD, Eye Disorder, Memory Impairment, Myocardial Infarction (PA), Respiratory Disorder, Vascular Disorder Additional Past Medical History / Comment(s): Pt recently admitted to [facility] on with hypokalemia, stage II ulcer to buttock (pt states still treating), metabolic encephalopathy which resolved. Other HX: acute hypoxic respiratory failure, bacterial bronchitis, home O2 prn ATC, pulmonary fibrosis, 1989 colon cancer with resection/colostomy/chemo and radiation, 1989 PA with cardiac arrest, bilateral glaucoma, PVD, bilateral leg varicose veins. Last Myocardial Infarction Date:: 1989 History of Any Multi-Drug Resistant Organisms: None Reported Past Surgical History: Adenoidectomy, Appendectomy, Bowel Resection, Hernia Repair, Tonsillectomy Additional Past Surgical History / Comment(s): 1989 colon resection with colostomy, hiatal hernia repair, colonoscopies. Past Anesthesia/Blood Transfusion Reactions: No Reported Reaction Past Psychological History: Anxiety, Depression Additional Psychological History / Comment(s): Pt states he has anxiety/ depression somewhat managed with his meds. He still feels quite anxious. He lives alone. He uses no assistive device. He drives. He has recently been established with home care but does not recall their name. Smoking Status: Former smoker Past Alcohol Use History: None Reported Additional Past Alcohol Use History / Comment(s): Pt started smoking in 1952 and was a light smoker and on/off smoker. He quit smoking in 2012. He has home O2 which he uses ATC now. Past Drug Use History: None Reported - Past Family History Mother History Unknown: Yes Family Medical History: COPD Additional Family Medical History / Comment(s): Mother never smoked. Father Family Medical History: No Reported History Additional Family Medical History / Comment(s): Father was healthy and at the age of 89yrs. Medications and Allergies Home Medications Medication Instructions Recorded Confirmed Type Diltiazem HCl 60 mg PO TID 05/09/16 06/15/16 History Metoprolol Tartrate [Lopressor] 25 mg PO BID 05/09/16 06/15/16 History HYDROcodone/APAP 5-325MG [[place] 1 tab PO BID PRN 05/15/16 06/15/16 History 5-325] Ipratropium/Albuterol Sulfate 2 puff INHALATION RT-QID 05/15/16 06/15/16 History [Combivent Respimat Inhaler] Furosemide [Lasix] 40 mg PO DAILY 06/10/16 06/15/16 History Sertraline [Zoloft] 50 mg PO DAILY 06/10/16 06/15/16 History Allergies Allergy/AdvReac Type Severity Reaction Status Date / Time aspirin AdvReac Dyspnea Verified 06/15/16 08:29 shellfish derived [Shellfish] AdvReac Itching Verified 06/15/16 08:29 Surgical - Exam Vital Signs Temp Pulse Resp BP Pulse Ox 97.4 F L 74 26 H 99/60 74 L 06/15/16 08:14 06/15/16 08:14 06/15/16 08:14 06/15/16 08:14 06/15/16 08:14 GENERAL: Pt awake and alert, well-appearing, well-nourished, and in no acute distress. HEAD: Atraumatic, normocephalic. ENT: Moist mucous membranes. LUNGS: Breath sounds clear to auscultation bilaterally. No wheezes, rales, or rhonchi. HEART: Heart S1, S2, no S3 or S4. Regular rate and rhythm. No murmurs, rubs or gallops. ABDOMEN: Soft, mild midepigastric and right upper quadrant tenderness, nondistended, normoactive bowel sounds. No guarding, no rebound. No masses or organomegaly appreciated. Colostomy to left lower quadrant. NEUROLOGICAL: Pt oriented x 3. Results - Labs 06/17/16 06:21 06/17/16 06:21 Abnormal Lab Results - Last 24 Hours (Table) 06/16/16 06/16/16 06/17/16 Range/Units 16:56 20:41 06:21 WBC 15.3 H (3.8-10.6) k/uL RBC 2.93 L (4.30-5.90) m/uL Hgb 7.7 L (13.0-17.5) gm/dL Hct 25.0 L (39.0-53.0) % Plt Count 458 H (150-450) k/uL Neutrophils # 13.8 H (1.3-7.7) k/uL Lymphocytes # 0.8 L (1.0-4.8) k/uL PT (9.0-12.0) sec Carbon Dioxide (22-30) mmol/L BUN (9-20) mg/dL POC Glucose (mg/dL) 135 H 144 H (75-99) mg/dL Plasma Lactic Acid Kristian (0.7-2.0) mmol/L 06/17/16 06/17/16 06/17/16 Range/Units 06:21 06:21 11:51 WBC (3.8-10.6) k/uL RBC (4.30-5.90) m/uL Hgb (13.0-17.5) gm/dL Hct (39.0-53.0) % Plt Count (150-450) k/uL Neutrophils # (1.3-7.7) k/uL Lymphocytes # (1.0-4.8) k/uL PT 31.4 H (9.0-12.0) sec Carbon Dioxide 32 H (22-30) mmol/L BUN 21 H (9-20) mg/dL POC Glucose (mg/dL) 107 H (75-99) mg/dL Plasma Lactic Acid Kristian (0.7-2.0) mmol/L 06/17/16 Range/Units 13:34 WBC (3.8-10.6) k/uL RBC (4.30-5.90) m/uL Hgb (13.0-17.5) gm/dL Hct (39.0-53.0) % Plt Count (150-450) k/uL Neutrophils # (1.3-7.7) k/uL Lymphocytes # (1.0-4.8) k/uL PT (9.0-12.0) sec Carbon Dioxide (22-30) mmol/L BUN (9-20) mg/dL POC Glucose (mg/dL) (75-99) mg/dL Plasma Lactic Acid Kristian 2.4 H* (0.7-2.0) mmol/L Microbiology - Last 24 Hours (Table) 06/16/16 05:31 Blood Culture Gram Stain - Preliminary Blood 06/16/16 05:31 Blood Culture - Preliminary Blood Diabetes panel 06/17/16 06/17/16 Range/Units 06:21 12:15 Sodium 140 (137-145) mmol/L Potassium 3.6 (3.5-5.1) mmol/L Chloride 98 (98-107) mmol/L Carbon Dioxide 32 H (22-30) mmol/L BUN 21 H (9-20) mg/dL Creatinine 0.76 (0.66-1.25) mg/dL Glucose 95 (74-99) mg/dL Calcium 8.8 (8.4-10.2) mg/dL AST 53 (17-59) U/L ALT 69 (21-72) U/L Alkaline Phosphatase 71 (38-126) U/L Calcium panel 06/17/16 Range/Units 06:21 Calcium 8.8 (8.4-10.2) mg/dL Pituitary panel 06/17/16 Range/Units 06:21 Sodium 140 (137-145) mmol/L Potassium 3.6 (3.5-5.1) mmol/L Chloride 98 (98-107) mmol/L Carbon Dioxide 32 H (22-30) mmol/L BUN 21 H (9-20) mg/dL Creatinine 0.76 (0.66-1.25) mg/dL Glucose 95 (74-99) mg/dL Calcium 8.8 (8.4-10.2) mg/dL Adrenal panel 06/17/16 06/17/16 Range/Units 06:21 12:15 Sodium 140 (137-145) mmol/L Potassium 3.6 (3.5-5.1) mmol/L Chloride 98 (98-107) mmol/L Carbon Dioxide 32 H (22-30) mmol/L BUN 21 H (9-20) mg/dL Creatinine 0.76 (0.66-1.25) mg/dL Glucose 95 (74-99) mg/dL Calcium 8.8 (8.4-10.2) mg/dL Total Bilirubin 0.2 (0.2-1.3) mg/dL AST 53 (17-59) U/L ALT 69 (21-72) U/L Alkaline Phosphatase 71 (38-126) U/L Assessment and Plan Plan: Impression: 1. Epigastric and right upper quadrant abdominal pain. 2. Leukocytosis. 3. Anemia. 4. Elevated plasma lactic acid venous. 5. Self-reported history of gallbladder disease. 6. History of colon cancer with bowel resection and colostomy. Plan: 1. Patient is scheduled to undergo CT of abdomen and pelvis with oral and IV contrast. Obtain ultrasound of abdomen. Continue IV antibiotics. Continue supportive treatment and pain management. Repeat CBC, BMP, PT/INR in a.m. Consider laparoscopic cholecystectomy tomorrow pending imaging. The above impression and plan have been discussed and directed by Dr. Mason. Geno SHAIKH acting as scribe for Dr. Mason.
[2016-06-17] MEDS: PIPERACILLIN-TAZOBACTAM 3.375 GM in DEXTROSE/WATER 1 50ML.BAG IVPB SCH ×2 (16:46→23:08)
[2016-06-17] MEDS: DILTIAZEM ORAL 60 MG TAB PO SCH ×2 (16:47→21:25)
[2016-06-17] MEDS: ALPRAZolam 0.5 MG TAB PO PRN ×2 (16:48→21:24)
[2016-06-17 17:01] LABS: Glucose,Whole Blood 103 mg/dL (75-99)
[2016-06-17] MEDS ORDERED: FUROSEMIDE 10 MG/ML 2 ML VIAL IV STA (20:35)
[2016-06-17] MEDS: METOPROLOL TARTRATE 25 MG TAB PO SCH (21:25)
[2016-06-18] MEDS: SODIUM CHLORIDE 0.9% 1,000 ML IV SCH ×2 (04:36→14:23)
[2016-06-18] MEDS: ALPRAZolam 0.5 MG TAB PO PRN ×3 (04:46→21:51)
[2016-06-18 06:34] LABS: INR 2.7 (<1.1); Prothrombin Time 26.4 sec (9.0-12.0)
[2016-06-18 06:42] LABS: Anion Gap 10 mmol/L; Blood Urea Nitrogen 19 mg/dL (9-20); Calcium 8.7 mg/dL (8.4-10.2); Carbon Dioxide 30 mmol/L (22-30); Chloride 100 mmol/L (98-107); Glucose 80 mg/dL (74-99); Non-African American GFR(MDRD) >60 (>60 ml/min/1.73 sqM); Potassium 4.1 mmol/L (3.5-5.1); Sodium 140 mmol/L (137-145)
[2016-06-18 06:59] LABS: Basophils % (A) 0 %; CH 25.8; CHCM 29.8; Eosinophils % (A) 0 %; HCT 24.7 % (39.0-53.0); HDW 3.09; HGB 7.5 gm/dL (13.0-17.5); Hypochromasia Marked; Luc # (Auto) 0.14; Luc % (Auto) 2; Lymphocytes # (A) 0.9 k/uL (1.0-4.8); Lymphocytes % (A) 9 %; MCH 26.2 pg (25.0-35.0); MCHC 30.2 g/dL (31.0-37.0); MCV 86.7 fL (80.0-100.0); Mean Platelet Volume 7.7; Monocytes # (A) 0.6 k/uL (0-1.0); Monocytes % (A) 6 %; Neutrophils # (A) 8.2 k/uL (1.3-7.7); Neutrophils % (A) 83 %; RBC 2.85 m/uL (4.30-5.90); RDW 14.2 % (11.5-15.5); WBC 9.8 k/uL (3.8-10.6); WBC (Perox) 10.74
[2016-06-18] MEDS: SERTRALINE 50 MG TAB PO SCH (08:26)
[2016-06-18] MEDS: METOPROLOL TARTRATE 25 MG TAB PO SCH ×2 (08:26→20:06)
[2016-06-18] MEDS: DILTIAZEM ORAL 60 MG TAB PO SCH ×3 (08:26→21:40)
[2016-06-18] MEDS: ZINC OXIDE 20% OINT 28.4 GM TUBE TOPICAL SCH ×2 (08:26→20:03)
[2016-06-18] MEDS: IPRATROPIUM-ALBUTEROL 3 ML NEB INHALATION SCH ×4 (08:30→19:22)
[2016-06-18] MEDS: PIPERACILLIN-TAZOBACTAM 3.375 GM in DEXTROSE/WATER 1 50ML.BAG IVPB SCH ×3 (08:36→23:48)
--- NOTE | 2016-06-18 08:55 | US ---
EXAMINATION TYPE: US abdomen limited DATE OF EXAM: 06/18/2016 7:52 AM COMPARISON: 11/14/2011 CLINICAL HISTORY: right upper quadrant abdominal pain. EXAM MEASUREMENTS: Liver Length: 17.7 cm Gallbladder Wall: 0.3 cm CBD: 0.5 cm Right Kidney: 10.5 x 4 x 5 cm TECHNOLOGIST IMPRESSION: Patient was SOB, unable to hold breath, had to sit up during exam, unable to move for examiner. Technically difficult study. FINDINGS: Pancreas: Mostly obscured by bowel gas, possible calcifications within head, unable to visualize we ll enough to confirm, see above limitations Liver: Homogeneous. Gallbladder: No gallstones seen Evidence for sonographic Geller's sign: patient in pain during entire test, verbalizing discomfort CBD: wnl Right Kidney: echogenic foci measuring 0.6 x 0.2 x 0.5cm no hydronephrosis. IMPRESSION: 1. Limited exam demonstrates no definite acute process. Nonobstructing right renal stone.
--- NOTE | 2016-06-18 09:49 | ECHOF ---
Referral Reason:check EF MEASUREMENTS -------- HEIGHT: 167.6 cm WEIGHT: 59.0 kg BP: 102/55 RVIDd: 3.3 cm (< 3.3) IVSd: 1.2 cm (0.6 - 1.1) LVIDd: 3.7 cm (3.9 - 5.3) LVPWd: 1.1 cm (0.6 - 1.1) IVSs: 1.6 cm LVIDs: 2.6 cm LVPWs: 1.7 cm LA Diam: 3.5 cm (2.7 - 3.8) LAESV Index (A-L): 25.71 ml/m Ao Diam: 3.7 cm (2.0 - 3.7) AV Cusp: 2.5 cm (1.5 - 2.6) LA Diam: 3.7 cm (2.7 - 3.8) MV EXCURSION: 18.395 mm (> 18.000) MV EF SLOPE: 79 mm/s (70 - 150) EPSS: 0.6 cm AV maxP.39 mmHg AV meanP.05 mmHg RAP: 5.00 mmHg RVSP: 32.02 mmHg FINDINGS -------- Atrial fibrillation. This was a technically difficult study with suboptimal parasternal views. The left ventricular size is normal. There is borderline concentric left ventricular hypertrophy. Overall left ventricular systolic function is normal with, an EF between 55 - 60 %. The right ventricle is mildly enlarged. The left atrium is normal in size. Normal LA size by volume 22+/-6 ml/m2. The right atrium is normal in size. Aortic valve is trileaflet and is moderately thickened. There is mild aortic stenosis present. Peak/mean gradient across the Aortic Valve is 35.39mmHg / 17.05mmHg. The mitral valve leaflets are mildly thickened. Mild mitral annular calcification present. Mild mitral regurgitation is present. Mild tricuspid regurgitation present. Right ventricular systolic pressure is normal at < 35 mmHg. The pulmonic valve was not well visualized. The aortic root is dilated measuring 3.7cm. Normal inferior vena cava with normal inspiratory collapse consistent with estimated right atrial pressure of 5 mmHg. There is no pericardial effusion. CONCLUSIONS -------- 1. Atrial fibrillation. 2. There is mild aortic stenosis present. 3. Peak/mean gradient across the Aortic Valve is 35.39mmHg / 17.05mmHg. 4. The mitral valve leaflets are mildly thickened. 5. Mild mitral annular calcification present. 6. Mild mitral regurgitation is present. 7. Mild tricuspid regurgitation present. 8. Right ventricular systolic pressure is normal at < 35 mmHg. 9. The pulmonic valve was not well visualized. 10. The aortic root is dilated measuring 3.7cm. 11. Normal inferior vena cava with normal inspiratory collapse consistent with estimated right atrial pressure of 5 mmHg. 12. This was a technically difficult study with suboptimal parasternal views. 13. There is no pericardial effusion. 14. The left ventricular size is normal. 15. There is borderline concentric left ventricular hypertrophy. 16. Overall left ventricular systolic function is normal with, an EF between 55 - 60 %. 17. The right ventricle is mildly enlarged. 18. Normal LA size by volume 22+/-6 ml/m2. 19. The right atrium is normal in size. 20. Aortic valve is trileaflet and is moderately thickened. CHEMIST INTERN: Leni Bryant RDCS
[2016-06-18] MEDS: HYDROcodone/APAP 5-325MG 1 EACH TAB PO PRN (11:30)
--- NOTE | 2016-06-18 11:32 | P.PN ---
Subjective Patient presented with significant weakness and dizziness. Patient had evidence of dehydration. And hypotension. Patient being worked up for right upper quadrant abdominal pain with leukocytosis. Abdominal ultrasound had showed no acute process but there was a positive Geller sign. Patient will be evaluated by surgical service. During exam patient had difficulty laying flat on his back. Patient did require dose of IV Lasix yesterday. He will be evaluated by pulmonary service. Patient will be seen by infectious disease due to the positive blood cultures. Patient still having some abdominal discomfort. Denies any vomiting. Eyes any bowel movement changes. Denies any chest pain. Has been having some shortness of breath. Denies any difficulty urinating. Objective - Vital Signs Vital signs: Vital Signs Temp 98 F 06/18/16 08:00 Pulse 122 H 06/18/16 08:42 Resp 18 06/18/16 08:00 BP 134/67 06/18/16 08:00 Pulse Ox 98 06/18/16 08:00 Intake & Output 06/17/16 06/18/16 06/18/16 18:59 06:59 18:59 Intake Total 1220 2150 Output Total 900 2275 Balance 320 -125 Weight 59.3 kg 61 kg Intake: IV 250 Vancomycin 1,250 mg In 250 Sodium Chloride 0.9% 250 ml @ 125 mls/hr IVPB Q12H [facility] Rx#:[id number] Intake, IV Titration 60 1900 Amount Piperacillin-Tazobactam 3 100 .375 gm In Dextrose/Water 1 50ml.bag @ 12.5 mls/hr IVPB Q8HR [facility] Rx#: [id number] Sodium Chloride 0.9% 1, 60 800 000 ml @ 75 mls/hr IV . [id number] [facility] Rx#:[id number] Sodium Chloride 0.9% 250 1000 ml @ 999 mls/hr IV .Q16M [facility] Rx#:[id number] Oral 1160 Output: Urine 900 2275 Other: Voiding Method Urinal Urinal Urinal # Voids 1 1 200 # Bowel Movements 0 1 1 - Exam Head normocephalic Neck supple Lungs slightly diminished at bases. No crackles noted. Upper airway congestion noted that did improve with cough. Heart regular rate and rhythm S1-S2, no rub or gallop Abdomen is soft nondistended right upper quadrant tenderness positive bowel sounds Extremities no edema Neuro alert and orientated to 3 - Labs CBC & Chem 7: 01/27/17 05:46 06/18/16 05:46 Labs: Abnormal Lab Results - Last 24 Hours (Table) 06/17/16 06/17/16 06/17/16 Range/Units 11:51 13:34 16:45 RBC (4.30-5.90) m/uL Hgb (13.0-17.5) gm/dL Hct (39.0-53.0) % MCHC (31.0-37.0) g/dL Plt Count (150-450) k/uL Neutrophils # (1.3-7.7) k/uL Lymphocytes # (1.0-4.8) k/uL PT (9.0-12.0) sec POC Glucose (mg/dL) 107 H 103 H (75-99) mg/dL Plasma Lactic Acid Kristian 2.4 H* (0.7-2.0) mmol/L 06/18/16 06/18/16 Range/Units 05:46 05:46 RBC 2.85 L (4.30-5.90) m/uL Hgb 7.5 L (13.0-17.5) gm/dL Hct 24.7 L (39.0-53.0) % MCHC 30.2 L (31.0-37.0) g/dL Plt Count 467 H (150-450) k/uL Neutrophils # 8.2 H (1.3-7.7) k/uL Lymphocytes # 0.9 L (1.0-4.8) k/uL PT 26.4 H (9.0-12.0) sec POC Glucose (mg/dL) (75-99) mg/dL Plasma Lactic Acid Kristian (0.7-2.0) mmol/L Microbiology - Last 24 Hours (Table) 06/16/16 05:31 Blood Culture Gram Stain - Preliminary Blood Blood Culture - Preliminary Alpha Hemolytic Streptococcus Assessment and Plan Plan: 1. Dizziness and lightheadedness: Most likely secondary to dehydration, Lasix use, and poor by mouth intake. Continue telemetry monitoring 2. Stage II ulcers with erythema on the buttocks area: Continue zinc oxide twice a day 3. History of colon cancer with bowel resection and colostomy. Also had chemotherapy and radiation treatment in 1989. 4. Paroxysmal atrial fibrillation: Maintained on Coumadin at home currently on hold secondary to supratherapeutic INR. We'll continue to monitor daily. Patient episode of atrial fibrillation with rapid ventricular response with heart rate in the 160s with ambulating. He was given his Cardizem and metoprolol. And there has been improvement in the heart rate . Patient's blood pressures have shown improvement since yesterday we will resume his metoprolol 25 mg twice a day and Cardizem 60 mg 3 times a day 5. Anemia of chronic disease and iron deficiency anemia. Continue iron supplement. 6. History of COPD no evidence of exacerbation. Chest x-ray shows COPD with chronic pulmonary fibrotic changes 7. Essential hypertension with hypotension on admission. Blood pressures are stable 8. Bacteremia: 2 positive blood cultures 1 growing alpha hemolytic streptococcus in the other streptococcus mitis patient evaluated by infectious disease. Currently on vancomycin 9. Leukocytosis with right upper quadrant abdominal pain. LFTs, amylase and lipase all within normal limits. Patient did have elevated lactic acid level received IV fluids. He will be evaluated by surgical service and infectious disease. 10. Shortness of breath. While patient evaluated by pulmonary service and also have him cleared by pulmonary for possible surgery. I performed an examination of the patient and discussed their management with the physician Station Installation Supervisor. I have reviewed the Physician Station Installation Supervisor's notes and agree with the documented findings and plan of care
--- NOTE | 2016-06-18 15:32 | P.PN ---
Subjective Principal diagnosis: Abdominal pain Patient is an 80-year-old white male admitted with symptoms of epigastric and right upper quadrant pain. Abdominal ultrasound without evidence of gallstones ; positive for sonographic Geller's sign. Common bile duct within normal limits. CT of abdomen and pelvis canceled secondary to patient being an ALLERGIC to iodinated contrast. Patient continues to complain of epigastric and right upper quadrant pain. Denies nausea or vomiting. Afebrile. Hemodynamically stable. WBC 9.8. Hemoglobin 7.5. INR 2.7. Objective - Vital Signs Vital signs: Vital Signs Temp 98 F 06/18/16 08:00 Pulse 73 06/18/16 11:42 Resp 18 06/18/16 11:25 BP 105/65 06/18/16 11:25 Pulse Ox 98 06/18/16 11:25 Intake & Output 06/17/16 06/18/16 06/18/16 18:59 06:59 18:59 Intake Total 1220 2150 Output Total 900 2275 200 Balance 320 -125 -200 Weight 59.3 kg 61 kg Intake: IV 250 Vancomycin 1,250 mg In 250 Sodium Chloride 0.9% 250 ml @ 125 mls/hr IVPB Q12H [facility] Rx#:[id number] Intake, IV Titration 60 1900 Amount Piperacillin-Tazobactam 3 100 .375 gm In Dextrose/Water 1 50ml.bag @ 12.5 mls/hr IVPB Q8HR [facility] Rx#: [id number] Sodium Chloride 0.9% 1, 60 800 000 ml @ 75 mls/hr IV . [id number] [facility] Rx#:[id number] Sodium Chloride 0.9% 250 1000 ml @ 999 mls/hr IV .Q16M [facility] Rx#:[id number] Oral 1160 Output: Urine 900 2275 200 Other: Voiding Method Urinal Urinal Urinal # Voids 1 1 200 # Bowel Movements 0 1 1 - Exam GENERAL: Pt awake and alert, well-appearing, well-nourished, and in no acute distress. HEAD: Atraumatic, normocephalic. ENT: Moist mucous membranes. LUNGS: Breath sounds clear to auscultation bilaterally. No wheezes, rales, or rhonchi. HEART: Heart S1, S2, no S3 or S4. Regular rate and rhythm. No murmurs, rubs or gallops. ABDOMEN: Soft, mild midepigastric and right upper quadrant tenderness, nondistended, normoactive bowel sounds. No guarding, no rebound. No masses or organomegaly appreciated. Colostomy to left lower quadrant. NEUROLOGICAL: Pt oriented x 3. - Labs CBC & Chem 7: 06/18/16 05:46 06/18/16 05:46 Labs: Abnormal Lab Results - Last 24 Hours (Table) 06/17/16 06/17/16 06/17/16 Range/Units 11:51 13:34 16:45 RBC (4.30-5.90) m/uL Hgb (13.0-17.5) gm/dL Hct (39.0-53.0) % MCHC (31.0-37.0) g/dL Plt Count (150-450) k/uL Neutrophils # (1.3-7.7) k/uL Lymphocytes # (1.0-4.8) k/uL PT (9.0-12.0) sec POC Glucose (mg/dL) 107 H 103 H (75-99) mg/dL Plasma Lactic Acid Kristian 2.4 H* (0.7-2.0) mmol/L 06/18/16 06/18/16 Range/Units 05:46 05:46 RBC 2.85 L (4.30-5.90) m/uL Hgb 7.5 L (13.0-17.5) gm/dL Hct 24.7 L (39.0-53.0) % MCHC 30.2 L (31.0-37.0) g/dL Plt Count 467 H (150-450) k/uL Neutrophils # 8.2 H (1.3-7.7) k/uL Lymphocytes # 0.9 L (1.0-4.8) k/uL PT 26.4 H (9.0-12.0) sec POC Glucose (mg/dL) (75-99) mg/dL Plasma Lactic Acid Kristian (0.7-2.0) mmol/L Microbiology - Last 24 Hours (Table) 06/16/16 05:31 Blood Culture Gram Stain - Preliminary Blood Blood Culture - Preliminary Alpha Hemolytic Streptococcus Assessment and Plan Plan: Impression: 1. Epigastric and right upper quadrant abdominal pain with positive Geller's sign on abdominal ultrasound. No evidence of cholelithiasis. 2. Leukocytosis, resolved. 3. Anemia. Hemoglobin 7.5 from 7.7 yesterday. 4. Elevated plasma lactic acid venous, resolved. 5. Self-reported history of gallbladder disease. 6. History of colon cancer with bowel resection and colostomy status post chemo and radiation. 7. Hypercoagulopathy. INR 2.7. Plan: 1. Patient will undergo EGD on Tuesday. Patient will be kept nothing by mouth after Tuesday midnight. Continue to monitor patient. Continue IV antibiotics. Continue supportive treatment and pain management. Continue to follow with consultants and primary care service. Repeat CBC, BMP, PT/INR in a.m. The above impression and plan have been discussed and directed by Dr. Mason. Geno SHAIKH acting as scribe for Dr. Mason.
--- NOTE | 2016-06-18 16:16 | CONS ---
DATE OF CONSULTATION: 06/18/2016 REASON FOR CONSULTATION: Positive blood culture. HISTORY OF PRESENT ILLNESS: The patient is an 80-year-old male who was brought into the ER at [facility] on 06/15/2016 with chief complaint of shortness of breath. That apparently had been going on for about 3 to 4 days. No history of any fevers, chills or any sweats or sputum production. The patient subsequently has been evaluated by the ER physician. The patient did have a chest x-ray, which shows no acute pulmonary process. The patient did have normal white count on admission; however, did jump to 18.3 on 06/17. Patient did have a normal kidney function. UA was negative. He did have blood cultures obtained in the ER on 06/15 with both of them showing Streptococcus mitis oralis. Follow up blood culture 06/16 also showing Streptococcus. Patient has been complaining of pain in the right upper quadrant area for which recent ultrasound has been done, which showed gallbladder to be normal. Surgery has been on the case and because of positive blood culture, I was asked to see the patient for further recommendations regarding antibiotic therapy. Patient has no fever during this admission. On my evaluation, the patient remains to be sleepy, lethargic and would not answer any questions to me. No clear history of any nausea or vomiting. The patient also had echocardiogram done, which did show normal EF and no evidence of any vegetation. History remains to be limited because of his unable to provide any history. No family member available at the bedside. REVIEW OF SYSTEMS: Could not be reliably obtained with the positives as mentioned in HPI. PAST MEDICAL HISTORY: Atrial fibrillation, atrial flutter, coronary artery disease, heart failure, COPD, myocardial infarction. PAST SURGICAL HISTORY: Adenoidectomy, appendectomy, bowel resection, hernia repair and tonsillectomy. SOCIAL HISTORY: Remote history of smoking; quit back in 2012. No drinking or drug use. FAMILY HISTORY: Mother with history of COPD, father of old age. ALLERGIES: ASPIRIN, IODINATED CONTRAST MEDIA. Medications currently include the patient is on [place], DuoNeb, Xanax, Cardizem, Lopressor, Zofran, pip-tazobactam, Zoloft, vancomycin. On examination, blood pressure is 105/55, pulse of 80, temperature 98. He is 98% on 2 liters nasal cannula. General description is an elderly male, lying in bed in no distress. No tachypnea or accessory muscle of respiration use. HEENT examination shows pallor. There is no scleral icterus. Oral mucous membrane dry. NECK: Trachea is central. No thyromegaly. LUNGS: Nonlabored breathing. Decreased breath sounds at the base. No wheeze. HEART: S1, S2, regular rate and rhythm. ABDOMEN: Soft. Mild tenderness in right upper quadrant area. No guarding, no rigidity. EXTREMITIES: No edema of feet. SKIN EXAMINATION: No rash or mass palpable. NEUROLOGIC: Patient remains lethargic. Orientation cannot be done. LABS: Hemoglobin is 7.5, white count 9.8, BUN of 19, creatinine 0.8. Liver enzymes are normal. Lactic acid elevated at 2.4. Blood cultures showed Streptococcus mitis oralis. DIAGNOSTIC IMPRESSION AND PLAN: Patient with positive blood culture with Streptococcus mitis oralis more likely a contamination. The patient does not look toxic. He is not running any fever. Does not have elevated white count except yesterday. The patient with no clear focus of infection. However, the patient is tender right upper quadrant area and underlying acalculous cholecystitis will need to be ruled out with only abnormality currently seen on physical examination as the patient's chest x-ray report is negative for pneumonia. His urinalysis was negative. PLAN: 1. HIDA scan has been discussed with the primary team and has been ordered. 2. The patient is on Zosyn at this point and should cover for the streptococcus species and if repeat blood culture negative to discontinue vancomycin. 3. Will follow up on his clinical condition and cultures to further adjust the medication if needed. Thank you for this consultation. I will follow the patient along with you. STANISLAV
[2016-06-18] MEDS: VANCOMYCIN 1,250 MG in SODIUM CHLORIDE 0.9% 250 ML IVPB SCH ×3 (16:54)
--- NOTE | 2016-06-18 17:49 | CONS ---
DATE OF CONSULTATION: 06/18/2016 REASON FOR CONSULTATION: COPD. HISTORY OF PRESENT ILLNESS: Mr. Eder Christina is an 80-year-old male, seen, evaluated, examined on the sixth floor. This patient presented to emergency department on June 15 with problems associated with shortness of breath with 3 to 4 day duration with cough which is dry and nonproductive. Patient due to progressive increased respiratory difficulty decided to come into the emergency department for further evaluation, intervention and treatment and has been admitted to the hospital. Patient denies any hemoptysis. Past medical history significant for: 1. Chronic atrial fibrillation. 2. History of congestive heart failure, likely diastolic heart failure. 3. Severe chronic obstructive pulmonary disease, emphysema. 4. Chronic hypoxic respiratory failure on home oxygen. 5. History of prior myocardial infarction. 6. History of chronic dementia. 7. History of colon cancer requiring colon resection with chemo and radiation. 8. History of pulmonary fibrosis. 9. History of leg vein varicosities. PAST SURGICAL HISTORY: 1. Significant for adenoidectomy. 2. Appendectomy. 3. Bowel resection. 4. Hernia repair. 5. History of colostomy. 6. Hiatal hernia repair. 7. History of multiple colonoscopies in the past. ALLERGIES: ASPIRIN AND SHELLFISH. Medications at home include: Zinc oxide, Coumadin for atrial fibrillation, potassium 20 mg daily, Xanax 0.5 once daily. Also on Zoloft 50 mg daily, Lasix 40 mg daily, Combivent 3 or 4 times a day, hydrocodone APAP 4 times a day as needed, Lopressor 25 mg 2 times a day, diltiazem 60 mg daily. REVIEW OF SYSTEMS: Otherwise unremarkable and noncontributory except as dictated above. C [employer] WORKER: Denies seizure activity, loss of consciousness or hemiparesis. CARDIORESPIRATORY: Denies any chest pain. GI/: Otherwise unremarkable. MUSCULOSKELETAL/DERMATOLOGICAL: Unremarkable and noncontributory. Current medications while in the hospital include: Tylenol with Codeine, DuoNeb updraft 4 times a day. Also on Xanax, Cardizem, Lopressor, metoprolol, Mag-Ox, Zosyn, Zoloft, vancomycin and IV fluid is KVO. On examination, most recent vitals include blood pressure is 122/75, respiratory rate 17, pulse 78, temperature 97, saturation 91% on 2 liters oxygen. HEENT EXAMINATION: Atraumatic, normocephalic. Pharynx is clear. NECK: Supple without lymphadenopathy, jugular venous distention or carotid bruit. LUNGS: Bilateral good air entry is present without significant rales, rhonchi. HEART: Regular rate and rhythm. S1 and S2 audible. ABDOMEN: Soft. No rebound or rigidity. EXTREMITIES: +1 peripheral pulses. NEUROLOGICAL EXAMINATION: Otherwise, awake and alert. Laboratory data reviewed. Medications reviewed. The patient had an ultrasound due to intermittent abdominal pain, was found to positive Geller's sign with ultrasound. Right renal calculi were seen. No gallstones. Surgical services are following. The patient's chest x-ray at the time of admission revealed no acute process. The echocardiogram performed 06/17/2016 was reviewed and revealed atrial fibrillation with mild aortic stenosis, mitral leaflet thickened, mild TR is seen, right ventricular pressure is less than 35. Ejection fraction 55 to 60%. IMPRESSION: 1. Acute chronic obstructive pulmonary disease exacerbation. 2. Episodes of dizziness and lightheadedness thought to be related to dehydration. 3. History of colon cancer. 4. Paroxysmal atrial fibrillation. 5. Supratherapeutic INR. Coumadin dose is being adjusted. Patient appears to have responded well with deep breathing treatments. It appears that the exacerbation is well under control. Would recommend to continue breathing treatments as tolerated. Hold on starting any IV steroids. Continue empiric broad-spectrum antibiotics. We will follow clinical course closely. Systemic inflammatory response syndrome-like process versus sepsis with lactic acid evaluation on arrival; however, has been normalized with rehydration and empiric antibiotics. Will follow the INR.
[2016-06-18] MEDS ORDERED: FUROSEMIDE 10 MG/ML 2 ML VIAL IV STA (23:47)
[2016-06-19] MEDS: IPRATROPIUM-ALBUTEROL 3 ML NEB INHALATION PRN ×3 (01:07→17:36)
[2016-06-19 07:39] LABS: Basophils % (A) 0 %; CH 26.1; CHCM 30.3; Eosinophils % (A) 0 %; HCT 29.2 % (39.0-53.0); HDW 3.06; HGB 8.8 gm/dL (13.0-17.5); Hypochromasia Marked; Luc # (Auto) 0.09; Luc % (Auto) 0; Lymphocytes # (A) 0.4 k/uL (1.0-4.8); Lymphocytes % (A) 2 %; MCH 25.9 pg (25.0-35.0); MCHC 30.1 g/dL (31.0-37.0); Mean Platelet Volume 8.5; Monocytes # (A) 0.5 k/uL (0-1.0); Monocytes % (A) 2 %; Neutrophils # (A) 22.2 k/uL (1.3-7.7); Neutrophils % (A) 96 %; RDW 14.4 % (11.5-15.5); WBC 23.2 k/uL (3.8-10.6); WBC (Perox) 25.78
[2016-06-19 07:42] LABS: Anion Gap 11 mmol/L; Blood Urea Nitrogen 12 mg/dL (9-20); Calcium 9.2 mg/dL (8.4-10.2); Carbon Dioxide 32 mmol/L (22-30); Chloride 97 mmol/L (98-107); Glucose 120 mg/dL (74-99); Non-African American GFR(MDRD) >60 (>60 ml/min/1.73 sqM); Potassium 3.6 mmol/L (3.5-5.1); Sodium 140 mmol/L (137-145)
[2016-06-19 07:47] LABS: INR 1.8 (<1.1)
[2016-06-19] MEDS: DILTIAZEM ORAL 60 MG TAB PO SCH ×3 (07:56→15:34)
[2016-06-19] MEDS: SODIUM CHLORIDE 0.9% 1,000 ML IV SCH (07:56)
[2016-06-19] MEDS: ZINC OXIDE 20% OINT 28.4 GM TUBE TOPICAL SCH (07:56)
[2016-06-19] MEDS: SERTRALINE 50 MG TAB PO SCH ×2 (07:56→09:19)
[2016-06-19] MEDS: METOPROLOL TARTRATE 25 MG TAB PO SCH ×3 (07:56→12:09)
[2016-06-19] MEDS: ALPRAZolam 0.5 MG TAB PO PRN ×2 (07:56→16:54)
[2016-06-19] MEDS: IPRATROPIUM-ALBUTEROL 3 ML NEB INHALATION SCH ×4 (08:42→20:45)
[2016-06-19 08:44] LABS: Toxic Granulation Present
[2016-06-19] MEDS: VANCOMYCIN 1,250 MG in SODIUM CHLORIDE 0.9% 250 ML IVPB SCH (09:18)
[2016-06-19] MEDS: PIPERACILLIN-TAZOBACTAM 3.375 GM in DEXTROSE/WATER 1 50ML.BAG IVPB SCH ×2 (09:18→15:36)
--- NOTE | 2016-06-19 09:24 | PN ---
Eder Christina is an 80-year-old male, seen, evaluated, examined. Clinically, patient is doing well, awake and alert. Slightly better, more awake but remains confused. He is less agitated though. Respiratory status appears slightly better today compared to yesterday. His last set of vitals include blood pressure is 148/78, respiratory rate is 20, heart rate is 120 to 130, saturation 98% on 2 L oxygen. HEENT EXAMINATION: Otherwise unremarkable. Oral mucosa moist. Neck veins are prominent. No bruits present. ABDOMEN: Soft. No rebound or rigidity. EXTREMITIES: +1 peripheral pulses. NEUROLOGICAL EXAMINATION: Otherwise, awake and alert. IMPRESSION: 1. Severe chronic obstructive pulmonary disease, possible exacerbation cannot be excluded. 2. History of dizziness, lightheadedness, likely related to dehydration. 3. Dementia and Alzheimer's disease. 4. Paroxysmal atrial fibrillation. Coumadin is on hold. 5. Hypertension, hypertensive cardiovascular disease. 6. Bacteremia related to ( ). ID service is following. The patient is on broad-spectrum antibiotics. Will follow
--- NOTE | 2016-06-19 09:47 | P.PN ---
Progress Note - Text Patient is being seen for Dr. Mason. He is stable. States he still has the upper abdominal discomfort. He is a little bit confused ultrasound was negative. On examination patient is a little confused. Vitals are stable. Temperature is normal. Abdomen is soft with mild epigastric tenderness. No guarding or rebound. Impression upper abdominal discomfort. Stable. COPD.recommendation patient is scheduled for EGD by Dr. Mason on Tuesday.
[2016-06-19] MEDS ORDERED: LORazepam 2 MG/ML SYRINGE IV PRN (11:02)
[2016-06-19 12:04] VITALS: RESP 20
[2016-06-19] MEDS: HYDROcodone/APAP 5-325MG 1 EACH TAB PO PRN ×2 (12:08→17:59)
[2016-06-19] MEDS ORDERED: FUROSEMIDE 10 MG/ML 2 ML VIAL IV STA (12:31)
--- NOTE | 2016-06-19 12:42 | P.PN ---
Subjective Principal diagnosis: Abdominal pain Patient is an 80-year-old male admitted to [facility] was a chief complaint of right upper quadrant abdominal pain, ultrasound of the abdomen revealed positive Geller sign, gallbladder was unremarkable was without any evidence of cholelithiasis, common bile duct was normal, computed tomography scan of the abdomen and pelvis was ordered and was canceled due to her ALLERGY to iodine and patient refusing test, HIDA scan was ordered and canceled due to patient refusing test. During this admission patient had positive blood cultures for Streptococcus metastatic shortness, he is maintained on vancomycin and Zosyn at this time he is followed by infectious disease. Today he is complaining of shortness of breath, chest x-ray, BNP were ordered He was given an extra dose of IV Lasix Objective - Vital Signs Vital signs: Vital Signs Temp 98.5 F 06/19/16 12:03 Pulse 128 H 06/19/16 12:15 Resp 20 06/19/16 12:03 BP 144/69 06/19/16 12:03 Pulse Ox 98 06/19/16 12:03 Intake & Output 06/18/16 06/19/16 06/19/16 18:59 06:59 18:59 Intake Total 0 60 240 Output Total 650 875 Balance -650 -815 240 Weight 62 kg Intake: Oral 0 60 240 Output: Urine 650 875 Other: Voiding Method Urinal Urinal Urinal # Voids 200 5 # Bowel Movements 0 - Exam HEENT head normocephalic and atraumatic Neck is supple no JVD no goiter no lymphadenopathy Chest exam reveals a clear respiratory sounds no crackles no wheezing Cardiac exam reveals regular heart sounds no murmurs Abdomen is soft with mild diffuse tenderness no organomegaly with normal bowel sounds Extremity exam reveals no edema no cyanosis or clubbing - Labs CBC & Chem 7: 06/19/16 06:52 06/19/16 06:52 Labs: Abnormal Lab Results - Last 24 Hours (Table) 06/19/16 06/19/16 06/19/16 Range/Units 06:52 06:52 06:52 WBC 23.2 H (3.8-10.6) k/uL RBC 3.40 L (4.30-5.90) m/uL Hgb 8.8 L (13.0-17.5) gm/dL Hct 29.2 L (39.0-53.0) % MCHC 30.1 L (31.0-37.0) g/dL Plt Count 531 H (150-450) k/uL Neutrophils # 22.2 H (1.3-7.7) k/uL Lymphocytes # 0.4 L (1.0-4.8) k/uL PT 17.0 H (9.0-12.0) sec Chloride 97 L (98-107) mmol/L Carbon Dioxide 32 H (22-30) mmol/L Glucose 120 H (74-99) mg/dL Microbiology - Last 24 Hours (Table) 06/17/16 23:56 Blood Culture - Preliminary Blood No Growth after 24 hours 06/16/16 05:31 Blood Culture Gram Stain - Final Blood Blood Culture - Final Streptococcus mitis/oralis 06/17/16 20:01 Blood Culture - Preliminary Blood No Growth after 24 hours Assessment and Plan Plan: #1 abdominal pain mostly in the right upper quadrant #2 sepsis was positive blood culture #3 leukocytosis worsening today #4 dyspnea with check BNP and chest x-ray #5 underlying history of atrial fibrillation maintained on Coumadin #6 underlying history of COPD At this time continue was current management with IV antibiotics Surgery are following and planning EGD on Tuesday Will check chest x-ray and BNP to assess cause of shortness of breath and adjust medications accordingly
--- NOTE | 2016-06-19 13:01 | XR ---
EXAMINATION TYPE: XR chest 1V portable DATE OF EXAM: 06/19/2016 12:56 PM COMPARISON: 06/15/2016 HISTORY: Shortness of breath TECHNIQUE: Single frontal view of the chest is obtained. FINDINGS: Hyperexpansion of the lungs. Biapical pleural thickening. No acute infiltrate. Coarsened i nterstitium noted. No consolidative pneumonia. Deformity of the rib cage suggest remote trauma. Arthr opathy of the shoulders noted. IMPRESSION: 1. COPD correlate for chronic interstitial lung disease or mild venous congestion.
[2016-06-19 15:37] VITALS: BP 148/80; TEMP 98.4
[2016-06-19 20:59] VITALS: PULSE 120
[2016-06-19 21:03] LABS: Glucose,Whole Blood 244 mg/dL (75-99)
--- NOTE | 2016-06-19 21:36 | CT ---
EXAMINATION TYPE: CT brain wo con DATE OF EXAM: 06/19/2016 9:24 PM COMPARISON: 06/10/2016 HISTORY: Patient unresponsive. Patient found with blood oxygenation about 40%. Blood oxygenation br ought up but patient still unresponsive. Patient labored respirations. CT DLP: 1661.9 mGycm Automated exposure control for dose reduction was used. FINDINGS: There is cerebral cortical atrophy. There is patchy hypodensity in the periventricular white matter. There is no mass effect nor midline shift. There is no sign of intracranial hemorrhage. Calvarium is intact. IMPRESSION: There is cerebral atrophy and chronic small vessel ischemia. No acute intracranial abnormality. No ch maricruz compared to old exam.
[2016-06-19] MEDS ORDERED: VANCOMYCIN 1,250 MG in SODIUM CHLORIDE 0.9% 250 ML IVPB SCH (22:00)
--- NOTE | 2016-06-21 14:33 | P.DS ---
Providers Date of admission: 06/15/16 12:10 Expected date of discharge: 06/19/16 Attending physician: Jose L Gomez Consults: 06/17/16 13:16 Consult Physician Routine Consulting Provider: Lelia Ko Consult Reason/Comments: positive blood culture and abdominal pain Do you want consulting provider notified?: Yes 06/17/16 13:17 Consult Physician Routine Consulting Provider: Jonatan Mason Consult Reason/Comments: abdominal pain Do you want consulting provider notified?: Yes 06/18/16 10:20 Consult Physician Routine Consulting Provider: Dimitri Plascencia Consult Reason/Comments: shortness of breath, surgical clearance Do you want consulting provider notified?: Yes Primary care physician: [facility] Course: Discharge diagnosis/ summary Preliminary cause of : Sepsis with intra-abdominal infection and acute hypoxic respiratory failure 1. Sepsis with possible intra-abdominal infection 2. Bacteremia likely source is abdominal 3. Dizziness and lightheadedness: Most likely secondary to dehydration, Lasix use, and poor by mouth intake. Continue telemetry monitoring 4. Stage II ulcers with erythema on the buttocks area: Continue zinc oxide twice a day 5. History of colon cancer with bowel resection and colostomy. Also had chemotherapy and radiation treatment in 1989. 6. Paroxysmal atrial fibrillation with episodes of rapid ventricular rate 7. Anemia of chronic disease and iron deficiency anemia. Continue iron supplement. 8. Possible COPD exacerbation. Chest x-ray shows COPD with chronic pulmonary fibrotic changes 9. Essential hypertension with hypotension on admission. 10. Acute hypoxic respiratory failure Hospital course This is a 80-year-old male who initially presented with significant weakness and dizziness. He was found to be dehydrated and had hypotension. Blood pressure medications were adjusted and he was given IV fluids. Patient then developed right upper quadrant pain with leukocytosis. He had abdominal ultrasound that showed no acute process and there was a positive Geller sign. He was unable to have a computed tomography scan of the abdomen due to ALLERGY to iodine. And patient refused testing. He had a HIDA scan ordered for further evaluation of the gallbladder and patient refused HIDA scan. Patient was seen by surgical service infectious disease and pulmonary service. He had antibiotics adjusted by infectious disease. And was on IV Zosyn. He did have positive blood cultures and likely the source was abdominal. Patient did have evidence of sepsis due to the leukocytosis and elevated lactic acid and he had episodes of tachycardia. Likely the source was abdominal and he did have some bacteremia. Patient had been refusing all tests for further evaluation of the abdomen he was going to have an EGD on Tuesday. However over the weekend patient 's condition worsened. He became unresponsive and respiratory distress he recovered a transfer to the ICU. Cardiology was consulted. A computed tomography scan of the brain was completed showing cerebral atrophy and chronic small vessel ischemia. No acute abnormality. Patient remained unresponsive even after the CAT scan. Family was notified and were at bedside. They wanted to proceed with comfort care. Therefore patient was placed on comfort care. And he on 06/19/2016. Please refer to chart for any further details. Patient Condition at Discharge: Stable Plan - Discharge Summary Discharge Medication List Diltiazem HCl 60 mg PO TID 05/09/16 [History] Metoprolol Tartrate [Lopressor] 25 mg PO BID 05/09/16 [History] HYDROcodone/APAP 5-325MG [[place] 5-325] 1 tab PO BID PRN 05/15/16 [History] Ipratropium/Albuterol Sulfate [Combivent Respimat Inhaler] 2 puff INHALATION RT- QID 05/15/16 [History] ALPRAZolam [Xanax] 0.5 mg PO DAILY PRN #10 tablet 05/17/16 [Rx] Furosemide [Lasix] 40 mg PO DAILY 06/10/16 [History] Sertraline [Zoloft] 50 mg PO DAILY 06/10/16 [History] Potassium Chloride Oral Liquid 20 meq PO DAILY #300 ml 06/12/16 [Rx] Warfarin Sodium [Coumadin] 3 mg PO HS #30 tab 06/12/16 [Rx] Zinc Oxide 20% Oint 1 applic TOPICAL BID #60 applic 06/12/16 [Rx] Follow up Appointment(s)/Referral(s): Addis Dudley DO [Primary Care Provider] - 1-2 days Dimitri Plascencia MD [STAFF PHYSICIAN] - 1 Week Discharge Disposition: - Preliminary Cause of Preliminary Cause of : Sepsis secondary to intra-abdominal source and acute hypoxic respiratory fa
--- NOTE | 2016-06-22 16:20 | CDI ---
In responding to this query, please exercise your independent professional judgment. The [facility] Coding Staff and Clinical Documentation Specialists appreciate your assistance in clarifying documentation, maintaining compliance with coding guidelines, accurately documenting patients condition and capturing severity of illness. The fact that a question is asked does not imply that any particular answer is desired or expected. Communication forms are a method of clarifying documentation and are not made part of the Legal Health Record. Thank you in advance for your clarification. Last Revision, March 2015 Brendaluz Irizarry [address] [facility] [place] [address] Documentation Clarification Form Date: 06/22/2016 4:04:00 PM From: Marnie Cano Phone: Admit Date: 06/15/2016 12:10:00 PM Patient Name: Eder Christina Visit Number: [id number] Discharge Date: Erna Estes Stage II ulcers on the buttocks is listed in the H&P, in your progress notes on 06/17 & 06/18 and in the discharge summay. Patient history/risk factors: Peripheral vascular disease Treatment: Hydrocolloid dressings. In your professional opinion, can you please clarify the type of ulcer on the buttocks? - Pressure - Venous - Arterial - Other - Unable to determine Please document in your progress notes and discharge summary in order to capture severity of illness and risk of mortality. Include clinical findings that support your diagnosis. FYI: Press F11 to launch patient chart. Place X here if this finding has no clinical significance, is not applicable or if you are not able to provide any additional documentation. STANISLAV
== END 2016-06-19 23:17 | disposition expired | DRG 871 ==
LOC: EC 08:11 → 6SEL 12:10
PROVIDERS: ADMIT Internal Medicine; ATTEND Internal Medicine
DX: A41.9 Sepsis, unspecified organism (principal); J96.21 Acute and chronic respiratory failure with hypoxia; J44.1 Chronic obstructive pulmonary disease with (acute) exacerbation; I50.32 Chronic diastolic (congestive) heart failure; L89.312 Pressure ulcer of right buttock, stage 2; I11.0 Hypertensive heart disease with heart failure; G30.9 Alzheimer's disease, unspecified; L89.322 Pressure ulcer of left buttock, stage 2; J84.10 Pulmonary fibrosis, unspecified; B99.8 Other infectious disease; F02.80 Dementia in other diseases classified elsewhere, unspecified severity, without behavioral disturbance, psychotic disturbance, mood disturbance, and anxiety; I48.0 Paroxysmal atrial fibrillation; Z86.74 Personal history of sudden cardiac arrest; F32.9 Major depressive disorder, single episode, unspecified; E86.0 Dehydration; I48.2 Chronic atrial fibrillation; D50.9 Iron deficiency anemia, unspecified; D63.8 Anemia in other chronic diseases classified elsewhere; F41.9 Anxiety disorder, unspecified; H40.9 Unspecified glaucoma; I25.10 Atherosclerotic heart disease of native coronary artery without angina pectoris; I25.2 Old myocardial infarction; I73.9 Peripheral vascular disease, unspecified; R79.1 Abnormal coagulation profile; I83.90 Asymptomatic varicose veins of unspecified lower extremity; Z51.5 Encounter for palliative care; Z79.01 Long term (current) use of anticoagulants; Z79.899 Other long term (current) drug therapy; Z85.038 Personal history of other malignant neoplasm of large intestine; Z87.891 Personal history of nicotine dependence; Z91.041 Radiographic dye allergy status; Z88.6 Allergy status to analgesic agent; Z91.013 Allergy to seafood; Z93.3 Colostomy status
CPT/HCPCS: 36415; 70450; 71010; 71020; 76705; 80048; 80053; 80202; 81003; 82150; 82247; 82550; 82553; 83605; 83690; 83735; 83880; 84075; 84132; 84450; 84460; 84484; 85025; 85610; 85730; 87040; 87077; 87186; 93005; 93306; 94640; 94760; 96374; 96375; 99291